=== PATIENT | female | born 1980 | race Caucasian/White ===

== ENCOUNTER 2016-09-17 09:08 | Emergency (ER) | payer BC ==
[2016-09-17 09:47] VITALS: BP 115/77
--- NOTE | 2016-09-17 11:32 | UC ---
Lower Extremity/Ankle HPI - HPI Summary HPI Summary: 3 DAYS AGO PT NOTICED A PAINFUL SWOLLEN LUMP BACK OR RIGHT LEG JUST ABOVE THE KNEE. THE NEXT DAY THE SWELLING WAS GONE AND A BRUISE WAS THERE. HAS PAIN RADIATING UP LEG AND DOWN TO CALF. PT WORRIED ABOUT CLOT. STATES SHE HAD "PROBLEMS WITH THOSE VEINS" WHEN SHE WAS . NO PERSONAL OR FAMILY H/O DVT. NO SOB, CP OR NAUSEA. NO FEVER. - History of Current Complaint Chief Complaint: UCLowerExtremity Stated Complaint: PAIN IN LEG ABOVE KNEE Time Seen by Provider: 09/17/16 11:10 Hx Obtained From: Patient Hx Last Menstrual Period: 09/10/16 Onset/Duration: Gradual Onset, Lasting Days, Still Present Severity Initially: Moderate Severity Currently: Moderate Pain Intensity: 4 Pain Scale Used: 0-10 Numeric Aggravating Factor(s): Nothing Alleviating Factor(s): Nothing Able to Bear Weight: Yes - Allergies/Home Medications Allergies/Adverse Reactions: Allergies Allergy/AdvReac Type Severity Reaction Status Date / Time Amoxicillin [From Augmentin] Allergy Intermediate Vomiting Verified 12/10/14 15: 04 Clavulanic Acid Allergy Intermediate Vomiting Verified 12/10/14 15:04 [From Augmentin] Home Medications: Home Medications NK [No Home Medications Reported] 09/17/16 [History Confirmed 09/17/16] PMH/Surg Hx/FS Hx/Imm Hx Previously Healthy: Yes Endocrine History Of: Denies: Diabetes, Thyroid Disease Cardiovascular History Of: Denies: Cardiac Disorders, Hypertension Respiratory History Of: Denies: COPD, Asthma GI/ History Of: Denies: Ulcer - Surgical History Surgical History: None - Family History Known Family History: Negative: Blood Disorder - Social History Alcohol Use: Rare Substance Use Type: None Smoking Status (MU): Never Smoked Tobacco - Immunization History Most Recent Influenza Vaccination: 03/16/14 Most Recent Tetanus Shot: 04/13/14 Most Recent Pneumonia Vaccination: unsure Review of Systems Constitutional: Negative Skin: Negative Respiratory: Negative Cardiovascular: Negative Gastrointestinal: Negative Musculoskeletal: Myalgia All Other Systems Reviewed And Are Negative: Yes Physical Exam Triage Information Reviewed: Yes Appearance: Well-Appearing, No Pain Distress, Well-Nourished Vital Signs: Initial Vital Signs Temp 98.8 F 09/17/16 09:38 Pulse 65 09/17/16 09:38 Resp 18 09/17/16 09:38 BP 115/77 09/17/16 09:38 Pulse Ox 100 09/17/16 09:38 Vital Signs Reviewed: Yes Eyes: Positive: Conjunctiva Clear ENT: Positive: Hearing grossly normal Neck: Positive: Supple Respiratory Exam: Normal Cardiovascular Exam: Normal Abdomen Description: Positive: Soft Musculoskeletal: Positive: ROM Intact, No Edema, Other: - NO CALF TENDERNESS, NEG HOMANS, NO CORDS PALPATED. CALF CIRCUMFERENCE 39CM BILATERALLY Psychological: Positive: Age Appropriate Behavior Skin: Negative: rashes Lower Extremity Course/Dx - Course Course Of Treatment: PT VERY CONCERNED ABOUT DVT. ULTRASOUND ORDERED BUT PT UNABLE TO WAIT UNTIL IT COULD BE DONE DUE TO CHILDCARE NEEDS. I CALLED AND SPOKE WITH PCP DR. LINN. HER OFFICE WILL CALL THE PT AND ARRANGE FOR IMAGING AND FOLLOW-UP. - Differential Dx/Diagnosis Differential Diagnosis/HQI/PQRI: Bursitis, DVT, Fracture (Closed), Phlebitis, Strain Provider Diagnoses: RLE PAIN - Physician Notifications Discussed Patient Care With: DR. LINN Time Discussed With Above Provider: 11:40 - ADVISED OF PT INABILITY TO WAIT FOR US DUE TO HER CHILDRENS NEEDS. DR. LINN STATES HER OFFICE WILL CONTACT PT AND TAKE CARE OF HER Discharge - Discharge Plan Condition: Stable Disposition: HOME Patient Education Materials: Leg Pain (ED) Referrals: Brenda Linn MD [Primary Care Provider] - As Soon As Possible Additional Instructions: FOLLOW UP WITH YOUR PCP TO SCHEDULE AN OUTPATIENT ULTRASOUND. GO TO THE ER WITHOUT FAIL IF YOU DEVELOP WORSENING PAIN, SHORTNESS OF BREATH, CHEST PAIN, RAPID HEART BEAT, FEVER OR ANY OTHER CONCERNING SYMPTOMS.
== END 2016-09-17 11:40 | disposition home or self-care (01) ==
LOC: UCEAST 09:08
DX: M79.604 Pain in right leg (principal); Z88.1 Allergy status to other antibiotic agents
CPT/HCPCS: 99211; G0463

== ENCOUNTER → 2016-10-22 19:56 | Emergency (ER) | payer BC ==
[~2016-10-22 19:56] MED LIST: Aspirin Low Dose CHEW TAB* 81 MG PO ONE
--- NOTE | 2016-10-22 20:57 | RAD ---
Indication: Chest pain. 2 views of the chest demonstrates pectus excavatum deformity. Lung eli demonstrate no pleural fluid, pneumonia or pneumothorax. IMPRESSION: NO ACTIVE CARDIOPULMONARY DISEASE IS NOTED.
[2016-10-22 21:26] LABS: Hematocrit 41 % (35-47); Hemoglobin 13.6 g/dl (12.0-16.0); Mean Corpuscular HGB Conc 34 g/dl (31-36); Mean Corpuscular Hemoglobin 30 pg (27-31); Mean Corpuscular Volume 90 fL (80-97); Mean Platelet Volume 9 um3 (7.4-10.4); Red Blood Count 4.48 10^6/ul (4.0-5.4); Red Cell Distribution Width 13 % (10.5-15); White Blood Count 5.9 10^3/ul (3.5-10.8)
[2016-10-22 21:41] LABS: ALT 13 U/L (7-52); Albumin 4.5 g/dL (3.2-5.2); Alkaline Phosphatase 37 U/L (34-104); BUN/Creatinine Ratio 15.1 (8-20); Blood Urea Nitrogen 14 mg/dL (6-24); CO2 Carbon Dioxide 28 mmol/L (22-32); Chloride 102 mmol/L (101-111); EGFR African American 88.8 (>60); Globulin 2.6 g/dL (2-4); Glucose 79 mg/dL (70-100); Sodium 136 mmol/L (133-145); Total Protein 7.1 g/dL (6.4-8.9)
[2016-10-22 21:53] LABS: AST 23 U/L (13-39); Anion Gap 6 mmol/L (2-11); Potassium 3.7 mmol/L (3.5-5.0)
--- NOTE | 2016-10-22 22:54 | ED ---
Sylvia Lira Erika, scribed for Natanael Harris MD on 10/22/16 at 2135 . HPI Chest Pain - HPI Summary HPI Summary: Patient is a 36-year-old female presenting to the ED with a CC of chest pain intermittently for the past week. Patient reports that she has had seemingly random episodes of stabbing pain between her shoulder blades, associated with a pain in the left anterior chest. Each episode lasts a few seconds, and is not related to exertion. Pt denies any pain in between these episodes. She reports most recent episode was 19:30 today. Pt does also report lightheadedness when she stands, worse recently. She also reports a 30 minute episode of diaphoresis on 10/19/2016, without feeling hot and unrelated to other symptoms. Pt denies SOB and nausea. Pt denies PMHx. She states her parents are alive and healthy in their 60s. - History of Current Complaint Chief Complaint: EDGeneral Time Seen by Provider: 10/22/16 20:15 Hx Obtained From: Patient Onset/Duration: Started Weeks Ago - 1 week, Atraumatic, Still Present Timing: Intermittent Initial Severity: Moderate Current Severity: None Pain Intensity: 0 Pain Scale Used: 0-10 Numeric Chest Pain Location: Left Anterior Chest Pain Radiates: Yes Chest Pain Radiates To:: Back Character: Sharp/Stabbing Aggravating Factor(s): Nothing Alleviating Factor(s): Spontaneous Resolution Associated Signs and Symptoms: Negative: Shortness of Breath, Nausea - Allergy/Home Medications Allergies/Adverse Reactions: Allergies Allergy/AdvReac Type Severity Reaction Status Date / Time Amoxicillin [From Augmentin] Allergy Intermediate Vomiting Verified 12/10/14 15: 04 Clavulanic Acid Allergy Intermediate Vomiting Verified 12/10/14 15:04 [From Augmentin] PMH/Surg Hx/FS Hx/Imm Hx Endocrine/Hematology History: Denies: Hx Diabetes, Hx Thyroid Disease Cardiovascular History: Denies: Hx Hypertension Respiratory History: Denies: Hx Asthma, Hx Chronic Obstructive Pulmonary Disease (COPD) GI History: Denies: Hx Ulcer Infectious Disease History: Denies: Hx Hepatitis, Hx Human Immunodeficiency Virus (HIV), Traveled Outside the [place] in Last 30 Days - Family History Known Family History: Negative: Cardiac Disease, Blood Disorder - Social History Alcohol Use: Rare Hx Substance Use: No Substance Use Type: Reports: None Hx Tobacco Use: No Smoking Status (MU): Never Smoked Tobacco Review of Systems Positive: Skin Diaphoresis - 3 days ago, resolved Positive: Chest Pain Negative: Shortness Of Breath Negative: Nausea Neurological: Other - lightheadedness All Other Systems Reviewed And Are Negative: Yes Physical Exam Triage Information Reviewed: Yes Vital Signs On Initial Exam: Initial Vitals Temp Pulse Resp BP Pulse Ox 98.4 F 62 18 121/74 100 10/22/16 20:03 10/22/16 20:03 10/22/16 20:03 10/22/16 20:03 10/22/16 20:03 Vital Signs Reviewed: Yes Appearance: Positive: Well-Appearing, No Pain Distress Skin: Positive: Warm, Skin Color Reflects Adequate Perfusion, Dry Head/Face: Positive: Normal Head/Face Inspection Eyes: Positive: Normal ENT: Positive: Normal ENT inspection Neck: Positive: Supple, Nontender Respiratory/Lung Sounds: Positive: Clear to Auscultation, Breath Sounds Present Cardiovascular: Positive: RRR Abdomen Description: Positive: Nontender, Soft Bowel Sounds: Positive: Present Musculoskeletal: Positive: Normal Neurological: Positive: Normal Psychiatric: Positive: Affect/Mood Appropriate Diagnostics - Vital Signs Vital Signs Temp Pulse Resp BP Pulse Ox 10/22/16 20:03 98.4 F 62 18 121/74 100 - Laboratory Lab Results: Lab Results 10/22/16 10/22/16 10/22/16 Range/Units 21:15 21:15 21:15 WBC 5.9 (3.5-10.8) 10^3/ul RBC 4.48 (4.0-5.4) 10^6/ul Hgb 13.6 (12.0-16.0) g/dl Hct 41 (35-47) % MCV 90 (80-97) fL MCH 30 (27-31) pg MCHC 34 (31-36) g/dl RDW 13 (10.5-15) % Plt Count 177 (150-450) 10^3/ul MPV 9 (7.4-10.4) um3 Neut % (Auto) 51.6 (38-83) % Lymph % (Auto) 36.4 (25-47) % [place] % (Auto) 9.0 (1-9) % Eos % (Auto) 2.6 (0-6) % Baso % (Auto) 0.4 (0-2) % Absolute Neuts (auto) 3.1 (1.5-7.7) 10^3/ul Absolute Lymphs (auto) 2.2 (1.0-4.8) 10^3/ul Absolute Monos (auto) 0.5 (0-0.8) 10^3/ul Absolute Eos (auto) 0.2 (0-0.6) 10^3/ul Absolute Basos (auto) 0 (0-0.2) 10^3/ul Absolute Nucleated RBC 0 10^3/ul Nucleated RBC % 0.1 D-Dimer, Quantitative (Less Than 230) ng/mL Sodium 136 (133-145) mmol/L Potassium 3.7 (3.5-5.0) mmol/L Chloride 102 (101-111) mmol/L Carbon Dioxide 28 (22-32) mmol/L Anion Gap 6 (2-11) mmol/L BUN 14 (6-24) mg/dL Creatinine 0.93 (0.51-0.95) mg/dL Est GFR ( Amer) 88.8 (>60) Est GFR (Non-Af Amer) 69.0 (>60) BUN/Creatinine Ratio 15.1 (8-20) Glucose 79 (70-100) mg/dL Lactic Acid 0.6 (0.5-2.0) mmol/L Calcium 9.0 (8.6-10.3) mg/dL Total Bilirubin 0.50 (0.2-1.0) mg/dL AST 23 (13-39) U/L ALT 13 (7-52) U/L Alkaline Phosphatase 37 (34-104) U/L Troponin I 0.00 (<0.04) ng/mL Total Protein 7.1 (6.4-8.9) g/dL Albumin 4.5 (3.2-5.2) g/dL Globulin 2.6 (2-4) g/dL Albumin/Globulin Ratio 1.7 (1-3) Beta HCG, Quant < 0.60 mIU/mL 10/22/16 Range/Units 22:18 WBC (3.5-10.8) 10^3/ul RBC (4.0-5.4) 10^6/ul Hgb (12.0-16.0) g/dl Hct (35-47) % MCV (80-97) fL MCH (27-31) pg MCHC (31-36) g/dl RDW (10.5-15) % Plt Count (150-450) 10^3/ul MPV (7.4-10.4) um3 Neut % (Auto) (38-83) % Lymph % (Auto) (25-47) % [place] % (Auto) (1-9) % Eos % (Auto) (0-6) % Baso % (Auto) (0-2) % Absolute Neuts (auto) (1.5-7.7) 10^3/ul Absolute Lymphs (auto) (1.0-4.8) 10^3/ul Absolute Monos (auto) (0-0.8) 10^3/ul Absolute Eos (auto) (0-0.6) 10^3/ul Absolute Basos (auto) (0-0.2) 10^3/ul Absolute Nucleated RBC 10^3/ul Nucleated RBC % D-Dimer, Quantitative < 200 (Less Than 230) ng/mL Sodium (133-145) mmol/L Potassium (3.5-5.0) mmol/L Chloride (101-111) mmol/L Carbon Dioxide (22-32) mmol/L Anion Gap (2-11) mmol/L BUN (6-24) mg/dL Creatinine (0.51-0.95) mg/dL Est GFR ( Amer) (>60) Est GFR (Non-Af Amer) (>60) BUN/Creatinine Ratio (8-20) Glucose (70-100) mg/dL Lactic Acid (0.5-2.0) mmol/L Calcium (8.6-10.3) mg/dL Total Bilirubin (0.2-1.0) mg/dL AST (13-39) U/L ALT (7-52) U/L Alkaline Phosphatase (34-104) U/L Troponin I (<0.04) ng/mL Total Protein (6.4-8.9) g/dL Albumin (3.2-5.2) g/dL Globulin (2-4) g/dL Albumin/Globulin Ratio (1-3) Beta HCG, Quant mIU/mL Result Diagrams: 10/22/16 21:15 10/22/16 21:15 Lab Statement: Any lab studies that have been ordered have been reviewed, and results considered in the medical decision making process. - Radiology CXR Radiology Interpretation Completed By: Radiologist - IMPRESSION: NO ACTIVE CARDIOPULMONARY DISEASE IS NOTED. - EKG 20:46 Cardiac Rate: Bradycardia - at 58 bpm EKG Rhythm: Sinus Bradycardia Re-Evaluation - Re-Evaluation First Eval Re-Evaluation Time: 22:37 Comment: Discussed lab and imaging results with patient Chest Pain Course/Dx - Course Course Of Treatment: Ms. Jensen has an atypical pain and her W/U is normal here. - Diagnoses Provider Diagnoses: Chest pain Discharge - Discharge Plan Condition: Stable Disposition: HOME Patient Education Materials: Chest Pain (ED) Referrals: Brenda Linn MD [Primary Care Provider] - 2 Days Additional Instructions: Please follow up with your PCP The documentation as recorded by the Sylvia bashir Erika accurately reflects the service I personally performed and the decisions made by me, Natanael Harris MD.
[2016-10-22 23:46] VITALS: BP 105/60
== END | disposition home or self-care (01) ==
LOC: ED 19:56
DX: R07.9 Chest pain, unspecified (principal); R61 Generalized hyperhidrosis
CPT/HCPCS: 36415; 71020; 80053; 83605; 84484; 84702; 85025; 85379; 93005; 99283; A9270-GY

== ENCOUNTER 2017-10-06 01:31 | Emergency (ER) | payer BC ==
[2017-10-06 04:24] LABS: ABS Basophils 0 10^3/ul (0-0.2); ABS Eosinophils 0.1 10^3/ul (0-0.6); ABS Lymphocytes 1.8 10^3/ul (1.0-4.8); ABS Monocytes 0.6 10^3/ul (0-0.8); ABS Neutrophils 3.7 10^3/ul (1.5-7.7); ABS Nucleated RBC 0 10^3/ul; Eosinophil % 2.3 % (0-6); Hematocrit 37 % (35-47); Hemoglobin 12.5 g/dl (12.0-16.0); Lymphocyte % 28.8 % (25-47); Mean Corpuscular HGB Conc 33 g/dl (31-36); Mean Corpuscular Hemoglobin 30 pg (27-31); Mean Corpuscular Volume 89 fL (80-97); Mean Platelet Volume 8.7 um3 (7.4-10.4); Nucleated Red Blood Cells % 0.1; Platelet Count 184 10^3/ul (150-450); Red Blood Count 4.22 10^6/ul (4.0-5.4); Red Cell Distribution Width 13 % (10.5-15); White Blood Count 6.4 10^3/ul (3.5-10.8)
[2017-10-06 04:39] LABS: INR 0.99 (0.77-1.02)
[2017-10-06 04:47] LABS: EGFR Non-African American 95.2 (>60)
[2017-10-06 05:22] LABS: Urine Appearance Cloudy; Urine Blood Negative (Negative); Urine Color Yellow; Urine Ketones Negative (Negative); Urine Protein Negative (Negative); Urine Specific Gravity 1.014 (1.010-1.030); Urine Urobilinogen Negative (Negative)
--- NOTE | 2017-10-06 05:30 | ED ---
Goran Lira Rebecca, scribed for Josh Hopsonuel on 10/06/17 at 0247 . Abdominal Pain/Female - HPI Summary HPI Summary: Pt is a 37 y/o F who presents to ED c/o RUQ abdominal pain. Sx have been present for about 3-4 days, worsening since onset. Pain is currently moderate, ranked 7/10 and characterized as pressure. Radiates to the back. Additionally c/ o chills and subjective fever. Denies N/V. Similar to prior episodes of "gallbaldder issues." No PMHx kidney stones. - History of Current Complaint Chief Complaint: EDAbdPain Stated Complaint: ABD PAIN Time Seen by Provider: 10/06/17 02:41 Hx Obtained From: Patient Hx Last Menstrual Period: 09/10/16 Onset/Duration: Still Present Severity Currently: Moderate Pain Intensity: 7 Pain Scale Used: 0-10 Numeric Location: Discrete At: RUQ Radiates: Yes Radiates to: Back Associated Signs and Symptoms: Positive: Fever. Negative: Nausea, Vomiting Allergies/Adverse Reactions: Allergies Allergy/AdvReac Type Severity Reaction Status Date / Time MS Amoxicillin Allergy Intermediate Vomiting Verified 12/10/14 15:04 [From Augmentin] MS Clavulanic Acid Allergy Intermediate Vomiting Verified 12/10/14 15:04 [From Augmentin] PMH/Surg Hx/FS Hx/Imm Hx Endocrine/Hematology History: Denies: Hx Diabetes, Hx Thyroid Disease Cardiovascular History: Denies: Hx Hypertension Respiratory History: Denies: Hx Asthma, Hx Chronic Obstructive Pulmonary Disease (COPD) GI History: Denies: Hx Ulcer Infectious Disease History: No Infectious Disease History: Denies: Hx Hepatitis, Hx Human Immunodeficiency Virus (HIV), Traveled Outside the [place] in Last 30 Days - Family History Known Family History: Negative: Cardiac Disease, Blood Disorder - Social History Alcohol Use: Rare Hx Substance Use: No Substance Use Type: Reports: None Hx Tobacco Use: No Smoking Status (MU): Never Smoked Tobacco Review of Systems Positive: Fever, Chills Positive: Abdominal Pain. Negative: Vomiting, Nausea All Other Systems Reviewed And Are Negative: Yes Physical Exam - Summary Physical Exam Summary: Appearance: Well appearing, no pain distress Skin: warm, dry, reflects adequate perfusion Head/face: normal Eyes: EOMI, RENATO ENT: normal Neck: supple, non-tender Respiratory: CTA, breath sounds present Cardiovascular: RRR, pulses symmetrical ~ Abdomen: R flank tenderness, soft Bowel: present Musculoskeletal: normal, strength/ROM intact Neuro: normal, sensory motor intact, A&Ox3 Triage Information Reviewed: Yes Vital Signs On Initial Exam: Initial Vitals Temp Pulse Resp BP Pulse Ox 99.4 F 75 20 121/74 100 10/06/17 01:36 10/06/17 01:36 10/06/17 01:36 10/06/17 01:36 10/06/17 01:36 Vital Signs Reviewed: Yes Diagnostics - Vital Signs Vital Signs Temp Pulse Resp BP Pulse Ox 10/06/17 01:36 99.4 F 75 20 121/74 100 - Laboratory Lab Results: Lab Results 10/06/17 10/06/17 10/06/17 Range/Units 04:14 04:14 04:14 WBC 6.4 (3.5-10.8) 10^3/ul RBC 4.22 (4.0-5.4) 10^6/ul Hgb 12.5 (12.0-16.0) g/dl Hct 37 (35-47) % MCV 89 (80-97) fL MCH 30 (27-31) pg MCHC 33 (31-36) g/dl RDW 13 (10.5-15) % Plt Count 184 (150-450) 10^3/ul MPV 8.7 (7.4-10.4) um3 Neut % (Auto) 58.7 (38-83) % Lymph % (Auto) 28.8 (25-47) % [place] % (Auto) 9.7 H (0-7) % Eos % (Auto) 2.3 (0-6) % Baso % (Auto) 0.5 (0-2) % Absolute Neuts (auto) 3.7 (1.5-7.7) 10^3/ul Absolute Lymphs (auto) 1.8 (1.0-4.8) 10^3/ul Absolute Monos (auto) 0.6 (0-0.8) 10^3/ul Absolute Eos (auto) 0.1 (0-0.6) 10^3/ul Absolute Basos (auto) 0 (0-0.2) 10^3/ul Absolute Nucleated RBC 0 10^3/ul Nucleated RBC % 0.1 INR (Anticoag Therapy) 0.99 (0.77-1.02) APTT 34.0 (26.0-36.3) seconds Sodium 136 L (139-145) mmol/L Potassium 3.5 (3.5-5.0) mmol/L Chloride 103 (101-111) mmol/L Carbon Dioxide 26 (22-32) mmol/L Anion Gap 7 (2-11) mmol/L BUN 10 (6-24) mg/dL Creatinine 0.70 (0.51-0.95) mg/dL Est GFR ( Amer) 122.5 (>60) Est GFR (Non-Af Amer) 95.2 (>60) BUN/Creatinine Ratio 14.3 (8-20) Glucose 95 (70-100) mg/dL Calcium 8.9 (8.6-10.3) mg/dL Total Bilirubin 0.70 (0.2-1.0) mg/dL AST 16 (13-39) U/L ALT 11 (7-52) U/L Alkaline Phosphatase 28 L (34-104) U/L Troponin I 0.00 (<0.04) ng/mL Total Protein 6.5 (6.4-8.9) g/dL Albumin 4.0 (3.2-5.2) g/dL Globulin 2.5 (2-4) g/dL Albumin/Globulin Ratio 1.6 (1-3) Lipase 25 (11.0-82.0) U/L Beta HCG, Quant < 0.60 mIU/mL Urine Color Urine Appearance Urine pH (5-9) Ur Specific [place] (1.010-1.030) Urine Protein (Negative) Urine Ketones (Negative) Urine Blood (Negative) Urine Nitrate (Negative) Urine Bilirubin (Negative) Urine Urobilinogen (Negative) Ur Leukocyte Esterase (Negative) Urine Glucose (Negative) Urine Ascorbic Acid (Negative) 10/06/17 Range/Units 05:00 WBC (3.5-10.8) 10^3/ul RBC (4.0-5.4) 10^6/ul Hgb (12.0-16.0) g/dl Hct (35-47) % MCV (80-97) fL MCH (27-31) pg MCHC (31-36) g/dl RDW (10.5-15) % Plt Count (150-450) 10^3/ul MPV (7.4-10.4) um3 Neut % (Auto) (38-83) % Lymph % (Auto) (25-47) % [place] % (Auto) (0-7) % Eos % (Auto) (0-6) % Baso % (Auto) (0-2) % Absolute Neuts (auto) (1.5-7.7) 10^3/ul Absolute Lymphs (auto) (1.0-4.8) 10^3/ul Absolute Monos (auto) (0-0.8) 10^3/ul Absolute Eos (auto) (0-0.6) 10^3/ul Absolute Basos (auto) (0-0.2) 10^3/ul Absolute Nucleated RBC 10^3/ul Nucleated RBC % INR (Anticoag Therapy) (0.77-1.02) APTT (26.0-36.3) seconds Sodium (139-145) mmol/L Potassium (3.5-5.0) mmol/L Chloride (101-111) mmol/L Carbon Dioxide (22-32) mmol/L Anion Gap (2-11) mmol/L BUN (6-24) mg/dL Creatinine (0.51-0.95) mg/dL Est GFR ( Amer) (>60) Est GFR (Non-Af Amer) (>60) BUN/Creatinine Ratio (8-20) Glucose (70-100) mg/dL Calcium (8.6-10.3) mg/dL Total Bilirubin (0.2-1.0) mg/dL AST (13-39) U/L ALT (7-52) U/L Alkaline Phosphatase (34-104) U/L Troponin I (<0.04) ng/mL Total Protein (6.4-8.9) g/dL Albumin (3.2-5.2) g/dL Globulin (2-4) g/dL Albumin/Globulin Ratio (1-3) Lipase (11.0-82.0) U/L Beta HCG, Quant mIU/mL Urine Color Yellow Urine Appearance Cloudy Urine pH 7.0 (5-9) Ur Specific [place] 1.014 (1.010-1.030) Urine Protein Negative (Negative) Urine Ketones Negative (Negative) Urine Blood Negative (Negative) Urine Nitrate Negative (Negative) Urine Bilirubin Negative (Negative) Urine Urobilinogen Negative (Negative) Ur Leukocyte Esterase Negative (Negative) Urine Glucose Negative (Negative) Urine Ascorbic Acid * A (Negative) Result Diagrams: 10/06/17 04:14 10/06/17 04:14 Lab Statement: Any lab studies that have been ordered have been reviewed, and results considered in the medical decision making process. - CT CT Abd/Pel CT Interpretation: No Acute Changes - No localizing signs for acute pathology. ED physicial reviewed this radiology report. CT Interpretation Completed By: Radiologist Re-Evaluation - Re-Evaluation First Eval Re-Evaluation Time: 05:28 Comment: Discussed results, sx have improved. Abdominal Pain Fem Course/Dx - Course Course Of Treatment: Pt is a 37 y/o F who presents to ED c/o RUQ abdominal pain for about 3-4 days, worsening since onset. Pain is currently moderate, ranked 7/ 10 and characterized as pressure. Radiates to the back. Additionally c/o chills and subjective fever. Denies N/V. Similar to prior episodes of "gallbaldder issues." No PMHx kidney stones. CT abd/pel reveals no acute findings. Blood work was done. Declined any pain medication. Pt will be D/C to home with Dx of flank pain with a follow up with her PCP. She understands and agrees. Allergies noted. - Diagnoses Differential Diagnosis: Positive: Appendicitis, Diverticulitis, Ovarian Cyst, Renal Colic, Urinary Tract Infection Provider Diagnoses: Flank pain Discharge - Sign-Out/Discharge Documenting (check all that apply): Discharge/Admit/Transfer - Discharge - Discharge Plan Condition: Stable Disposition: HOME Patient Education Materials: Flank Pain (ED) Referrals: Brenda Linn MD [Primary Care Provider] - 3 Days Additional Instructions: RETURN TO ED FOR ANY RETURNING OR WORSENING SYMPTOMS. - Billing Disposition and Condition Condition: STABLE Disposition: HOME The documentation as recorded by the Goran bashir Rebecca accurately reflects the service I personally performed and the decisions made by , Johnny Hopson.
[2017-10-06 05:44] VITALS: BP 117/71
--- NOTE | 2017-10-06 08:05 | RAD ---
CLINICAL HISTORY: Right flank pain COMPARISON: None TECHNIQUE: Noncontrast CT examination of the abdomen and pelvis from the lung bases through the initial tuberosities. FINDINGS: VISUALIZED LUNG BASES: The visualized lung bases are grossly clear. There is no pleural effusion. ABDOMEN AND PELVIS: Evaluation of the solid organs and vasculature is limited without intravenous contrast. The liver, spleen, pancreas and adrenal glands are grossly normal in appearance. The gallbladder is normal. The kidneys are normal in appearance without focal mass, calcification or signs of hydronephrosis. The small and large bowel are not distended.The patient's normal appendix is identified in the right lower quadrant measuring up to 6 mm in diameter with gas in the lumen (axial image 58). There is no gross retroperitoneal or mesenteric lymphadenopathy. The pelvic viscera is normal in appearance. The abdominal aorta and iliac arteries are normal in course and diameter. There are no sinister bone lesions. IMPRESSION: Normal CT examination.
== END 2017-10-06 05:48 | disposition home or self-care (01) ==
LOC: ED 01:31
DX: R10.11 Right upper quadrant pain (principal); R50.9 Fever, unspecified; Z32.02 Encounter for pregnancy test, result negative; Z88.1 Allergy status to other antibiotic agents; Z88.0 Allergy status to penicillin
CPT/HCPCS: 36415; 74176; 80053; 81003; 83690; 84484; 84702; 85025; 85610; 85730; 99282

== ENCOUNTER 2018-03-04 21:30 | Emergency (ER) | payer BC ==
--- OUTSIDE RECORDS SUMMARY | 2018-03-04 21:51 | XMS REPORT ---
:1980 External Reference #:[id number] Author Organization [facility] Address [address] [place] [address] Phone [phone] Care Team Providers Name Role Phone Brenda Linn Care Team Information Pad Assembler Unavailable Brenda Linn Primary Care Physician Unavailable Payers Type Date Identification Numbers Payment Provider Subscriber Commercial Effective: Policy Number: BC/BS Of REY Jeffery Ernst 2016 [id number] PayID: [id number] [address] [place] [id number] Problems Date Description Provider Status Onset: 12/06/2015 Lyme disease Igor Devine M.D. Active Family History Date Family Member(s) Problem(s) Comments General Prostate Cancer PGF General Anemia General back pain. we tend to stiffen up. General Anorexia Nervosa General No early in GP1st cousin on Dad's side breast CA age 30. Triple negative Father healthy Number of Children 3 First Son developmentally delayed. down syndrome. 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 (2017) Cigarette Use Never Smoked Cigarettes ETOH Use Rarely consumes alcohol 1-2 glasses a year. Smoking Patient has never smoked Daily Caffeine Consumes on average 2 cups of tea per day Exercise Type/Frequency Exercises regularly free Current weights, walks with the stroller frequently, aerobics at home on elliptical 3 times a week x 30 minutes. Seat Belt/Car Seat Always uses a seat belt Allergies, Adverse Reactions, Alerts Date Description Reaction Status Severity Comments 06/30/2013 Augmentin active vomiting Medications Medication Date Status Form Strength Qnty SIG Indications Ordering Provider No Active 09/16/ Active Unknown Medications 2016 Amoxicillin 12/05/ Hx Tablets 500mg 90tabs 1 tab by Igor Baker 2016 - mouth Midura, 09/16/ three M.D. 2017 times a day Amoxicillin 11/29/ Hx Capsules 250mg 42caps 1 by mouth Brenda VallecilloJericho 2015 - three Temitope, 12/05/ times a M.D. 2016 day 14 days Amoxicillin 12/10/ Hx Tablets 500mg 63tabs 1 tab by Frances 2015 - mouth Vancourt, 08/07/ three M.D. 2016 times a day x 21 days Albuterol 05/02/ Hx Nebulizer 0.63mg/3ML 25unit 1 ampule 786.2 Shanna Sulfate 2013 - s every four [facility], 11/26/ hours via [facility] 2015 nebulizer as needed Nebulizer Set 05/02/ Hx 1units dispense 786.2 Shanna Up And Tubing 2013 - one [facility], 11/26/ machine [facility] 2015 for nebulizer Azithromycin 04/17/ Hx Tablets 250mg 5tabs 2 tabs 465.8 Frances 2013 - today, Vancourt, 05/02/ then 1 tab M.D. 2013 daily for next 4 days Proair HFA 04/17/ Hx Aerosol 108(90Base 1units 2 puffs 465.8 Frances 2013 - ) mcg/Act every 4-6 Vancourt, 11/26/ hours as M.D. 2015 needed Wrist Splint, 04/09/ Hx 1units right 842.09 Val Restrictive 2008 - wrist Facundo, Flex/Extend 09/18/ ;wear as [facility] 2009 directed /Folic 01/03/ Hx Tablets Shanna Acid 2007 - 12/29/ Evette, 2012 M.D. Ciloxan .3% 02/26/ Hx Solution 3.33mg/GM 10cc 1-2 gtts 372.03 Val 2007 - OU q3-4h Facundo, 05/20/ [place] 2006 Zithromax 11/06/ Hx Tablets 250mg 6tabs 2 Tabs Day Shanna 2007 - 1 von 12/01/ Evette, 2006 1 M.D. Tab qd Days 2 Thru 5 Augmentin 11/05/ Hx Tablets 875mg;125 20tabs 1 po bid 462 Val 2007 - mg with food Facundo, 11/06/ x 10D [facility] 2006 Alesse 28 Day 04/03/ Hx Tablets 0.02mg;0.1 1PK 1 po qd Val 2005 - mg Facundo, 01/03/ [facility] 2007 Axert 04/03/ Hx Tablets 12.5mg 9tabs 1 at onset 346.90 Mee 2005 - of [place], 09/18/ migraine Afnp-C 2010 sx, MR In 2 HRS / Hx Capsules 1 po qd Unknown Vitamins 0000 - 2015 Medications Administered in Office Medication Date Status Form Strength Qnty SIG Indications Ordering Provider TB Intradermal Administered Injection Brenda Linn M.D. Immunizations CPT Code Status Date Vaccine Lot # 63083 Given 06/30/2013 Tdap Tetanus, W Pertussis a54al [id number] Given 04/19/2013 DO Not Use Split Influenza Virus Vaccine 76940 Given 05/11/2012 DO Not Use Split Influenza Virus Vaccine Vital Signs Date Vital Result Comment 03/02/2018 BP Systolic 106 mmHg BP Diastolic 68 mmHg Heart Rate 60 /min Body Temperature 97.9 F Respiratory Rate 16 /min Height 66.5 inches 5'6.50" Weight 143.00 lb BMI (Body Mass Index) 22.7 kg/m2 12/16/2016 BP Systolic 100 mmHg BP Diastolic 70 mmHg Heart Rate 60 /min Body Temperature 98.2 F Respiratory Rate 18 /min Height 66.5 inches 5'6.50" Weight 138.00 lb BMI (Body Mass Index) 21.9 kg/m2 09/16/2016 BP Systolic 100 mmHg BP Diastolic 70 mmHg Heart Rate 60 /min Body Temperature 98.2 F Respiratory Rate 16 /min Height 66.5 inches 5'6.50" Weight 145.00 lb BMI (Body Mass Index) 23.1 kg/m2 12/13/2015 BP Systolic 100 mmHg BP Diastolic 60 mmHg Heart Rate 60 /min Body Temperature 98.3 F Respiratory Rate 16 /min Height 66.5 inches 5'6.50" Weight 135.50 lb BMI (Body Mass Index) 21.5 kg/m2 12/06/2015 BP Systolic 94 mmHg BP Diastolic 60 mmHg Heart Rate 72 /min Body Temperature 99.0 F Respiratory Rate 16 /min Height 66.5 inches 5'6.50" Weight 135.50 lb BMI (Body Mass Index) 21.5 kg/m2 11/27/2015 BP Systolic 98 mmHg BP Diastolic 68 mmHg Heart Rate 60 /min Body Temperature 97.7 F Height 66.5 inches 5'6.50" Weight 133.00 lb BMI (Body Mass Index) 21.1 kg/m2 08/08/2015 BP Systolic 96 mmHg BP Diastolic 68 mmHg Heart Rate 66 /min Body Temperature 97.9 F Respiratory Rate 16 /min Height 66.5 inches 5'6.50" Weight 136.38 lb BMI (Body Mass Index) 21.7 kg/m2 05/02/2014 BP Systolic 94 mmHg BP Diastolic 60 mmHg Heart Rate 80 /min Body Temperature 98.3 F Respiratory Rate 16 /min O2 % BldC Oximetry 168 % Height 66.5 inches 5'6.50" 04/17/2014 BP Systolic 108 mmHg BP Diastolic 62 mmHg Heart Rate 88 /min Body Temperature 98.3 F Respiratory Rate 14 /min O2 % BldC Oximetry 97 % Height 66.5 inches 5'6.50" Weight 168.50 lb BMI (Body Mass Index) 26.8 kg/m2 06/30/2013 BP Systolic 126 mmHg BP Diastolic 64 mmHg Heart Rate 66 /min Body Temperature 97.1 F Respiratory Rate 16 /min Height 66.5 inches 5'6.50" Weight 142.00 lb BMI (Body Mass Index) 22.6 kg/m2 12/29/2012 BP Systolic 100 mmHg BP Diastolic 60 mmHg Heart Rate 56 /min Body Temperature 98.6 F Respiratory Rate 16 /min Height 66.5 inches 5'6.50" Weight 140.38 lb BMI (Body Mass Index) 22.3 kg/m2 09/22/2011 BP Systolic 90 mmHg BP Diastolic 56 mmHg Heart Rate 72 /min Body Temperature 98.9 F Height 66.5 inches 5'6.50" Weight 136.00 lb BMI (Body Mass Index) 21.6 kg/m2 05/29/2010 BP Systolic 90 mmHg BP Diastolic 60 mmHg Heart Rate 60 /min Body Temperature 98.5 F Height 66.5 inches 5'6.50" Weight 140.00 lb BMI (Body Mass Index) 22.3 kg/m2 11/23/2009 BP Systolic 82 mmHg BP Diastolic 66 mmHg Heart Rate 60 /min Body Temperature 96.9 F Height 66.5 inches 5'6.50" Weight 132.00 lb BMI (Body Mass Index) 21.0 kg/m2 09/18/2009 BP Systolic 106 mmHg BP Diastolic 70 mmHg Heart Rate 60 /min Body Temperature 98.2 F Height 66.5 inches 5'6.50" Weight 138.00 lb BMI (Body Mass Index) 21.9 kg/m2 04/09/2009 BP Systolic 100 mmHg BP Diastolic 58 mmHg Heart Rate 68 /min Respiratory Rate 18 /min Height 66.5 inches 5'6.50" Weight 141.00 lb BMI (Body Mass Index) 22.4 kg/m2 01/04/2008 BP Systolic 120 mmHg BP Diastolic 64 mmHg Heart Rate 56 /min Body Temperature 98.7 F Height 66.5 inches 5'6.50" Weight 147.00 lb BMI (Body Mass Index) 23.4 kg/m2 10/07/2007 BP Systolic 120 mmHg BP Diastolic 64 mmHg Heart Rate 64 /min Body Temperature 98.3 F Height 66.5 inches 5'6.50" Weight 149.00 lb BMI (Body Mass Index) 23.7 kg/m2 07/14/2007 BP Systolic 102 mmHg BP Diastolic 70 mmHg Heart Rate 64 /min Body Temperature 97.9 F Height 66.5 inches 5'6.50" Weight 148.00 lb BMI (Body Mass Index) 23.5 kg/m2 05/20/2007 BP Systolic 100 mmHg BP Diastolic 60 mmHg Heart Rate 64 /min Body Temperature 97.9 F Height 66.5 inches 5'6.50" Weight 148.00 lb BMI (Body Mass Index) 23.5 kg/m2 02/26/2007 BP Systolic 100 mmHg BP Diastolic 50 mmHg Body Temperature 99.3 F Height 66.5 inches 5'6.50" Weight 149.00 lb BMI (Body Mass Index) 23.7 kg/m2 12/01/2006 BP Systolic 102 mmHg BP Diastolic 54 mmHg Heart Rate 76 /min Body Temperature 98.2 F Height 66.5 inches 5'6.50" Weight 148.00 lb BMI (Body Mass Index) 23.5 kg/m2 11/05/2006 BP Systolic 120 mmHg BP Diastolic 70 mmHg Heart Rate 80 /min Body Temperature 99.9 F Height 66.5 inches 5'6.50" Weight 146.00 lb BMI (Body Mass Index) 23.2 kg/m2 08/19/2006 BP Systolic 106 mmHg BP Diastolic 60 mmHg Heart Rate 66 /min Body Temperature 99.4 F Height 66.5 inches 5'6.50" Weight 148.00 lb BMI (Body Mass Index) 23.5 kg/m2 04/03/2006 BP Systolic 110 mmHg BP Diastolic 72 mmHg Heart Rate 68 /min Height 66.5 inches 5'6.50" Weight 147.31 lb BMI (Body Mass Index) 23.4 kg/m2 Results Test Date Test Result H/L Range Note CBC Auto Diff 12/25/2017 White Blood Count 4.5 10^3/uL 3.5-10.8 Red Blood Count 4.31 10^6/uL 4.00-5.40 Hemoglobin 12.7 g/dL 12.0-16.0 Hematocrit 38 % 35-47 Mean Corpuscular Volume 88 fL 80-97 Mean Corpuscular Hemoglobin 29 pg 27-31 Mean Corpuscular HGB Conc 34 g/dL 31-36 Red Cell Distribution Width 14 % 10.5-15 Platelet Count 191 10^3/uL 150-450 Mean Platelet Volume 8.6 um3 7.4-10.4 Abs Neutrophils 2.5 10^3/uL 1.5-7.7 Abs Lymphocytes 1.4 10^3/uL 1.0-4.8 Abs Monocytes 0.4 10^3/uL 0-0.8 Abs Eosinophils 0 10^3/uL 0-0.6 Abs Basophils 0 10^3/uL 0-0.2 Abs Nucleated RBC 0 10^3/uL Granulocyte % 56.7 % 38-83 Lymphocyte % 31.6 % 25-47 Monocyte % 10.0 % High 0-7 Eosinophil % 1.1 % 0-6 Basophil % 0.6 % 0-2 Nucleated Red Blood Cells % 0.1 Iron & Iron Binding Capacity 12/25/2017 Iron 81 g/dL 50-212 Unsaturated Iron Binding 207 g/dL Total Iron Binding Capacity 288 g/dL 250-450 Transferrin 206 mg/dL 203-362 % Iron Saturation 28 % 15-55 Laboratory test finding 12/25/2017 Ferritin 5.7 ng/mL Low 11-307 Urinalysis Profile 10/06/2017 Urine Color Yellow Urine Appearance Cloudy Urine Specific [place] 1.014 1.010-1.030 Urine pH 7.0 5-9 Urine Urobilinogen Negative Negative Urine Ketones Negative Negative Urine Protein Negative Negative Urine Leukocytes Negative Negative Urine Blood Negative Negative * * Negative 1 Urine Nitrite Negative Negative Urine Bilirubin Negative Negative Urine Glucose Negative Negative CBC Auto Diff 10/06/2017 White Blood Count 6.4 10^3/uL 3.5-10.8 Red Blood Count 4.22 10^6/uL 4.0-5.4 Hemoglobin 12.5 g/dL 12.0-16.0 Hematocrit 37 % 35-47 Mean Corpuscular Volume 89 fL 80-97 Mean Corpuscular Hemoglobin 30 pg 27-31 Mean Corpuscular HGB Conc 33 g/dL 31-36 Red Cell Distribution Width 13 % 10.5-15 Platelet Count 184 10^3/uL 150-450 Mean Platelet Volume 8.7 um3 7.4-10.4 Abs Neutrophils 3.7 10^3/uL 1.5-7.7 Abs Lymphocytes 1.8 10^3/uL 1.0-4.8 Abs Monocytes 0.6 10^3/uL 0-0.8 Abs Eosinophils 0.1 10^3/uL 0-0.6 Abs Basophils 0 10^3/uL 0-0.2 Abs Nucleated RBC 0 10^3/uL Granulocyte % 58.7 % 38-83 Lymphocyte % 28.8 % 25-47 Monocyte % 9.7 % High 0-7 Eosinophil % 2.3 % 0-6 Basophil % 0.5 % 0-2 Nucleated Red Blood Cells % 0.1 Inr/Protime 10/06/2017 Inr 0.99 0.77-1.02 Laboratory test finding 10/06/2017 Partial Thrombo Time 34.0 seconds 26.0 -36.3 PTT Troponin I 0.00 ng/mL <0.04 Comp Metabolic Panel 10/06/2017 Sodium 136 mmol/L Low 139-145 Potassium 3.5 mmol/L 3.5-5.0 Chloride 103 mmol/L 101-111 Co2 Carbon Dioxide 26 mmol/L 22-32 Anion Gap 7 mmol/L 2-11 Glucose 95 mg/dL 70-100 Blood Urea Nitrogen 10 mg/dL 6-24 Creatinine 0.70 mg/dL 0.51-0.95 BUN/Creatinine Ratio 14.3 8-20 Calcium 8.9 mg/dL 8.6-10.3 Total Protein 6.5 g/dL 6.4-8.9 Albumin 4.0 g/dL 3.2-5.2 Globulin 2.5 g/dL 2-4 Albumin/Globulin Ratio 1.6 1-3 Total Bilirubin 0.70 mg/dL 0.2-1.0 Alkaline Phosphatase 28 U/L Low 34-104 Alt 11 U/L 7-52 Ast 16 U/L 13-39 Egfr Non- 95.2 >60 Egfr 122.5 >60 2 Laboratory test finding 10/06/2017 Lipase 25 U/L 11.0-82.0 HCG < 0.60 mIU/mL 3 Laboratory test finding 04/17/2017 TSH 0.50 mIU/L 0.50-6.00 4 Laboratory test finding 01/01/2017 Coagulation Factor XI 92 % 55 - 150 5 Factor 8 Profile 01/01/2017 Coagulation Factor VIII 93 % 55 - 200 6 Activi von Willebrand Factor Antigen 136 % 55 - 200 7 VonWillibrand Factor Activity 124 % 55 - 200 8 von Willebrand Panel Interp See Comment 9 Laboratory test finding 12/16/2016 TSH 0.48 mIU/L Low 0.50-6.00 10 Lipid Profile 12/16/2016 Cholesterol 167 mg/dL 120-200 Triglycerides 101 mg/dL 30-200 HDL Cholesterol 79 mg/dL 30-85 LDL (Calculated) 68 CALC 0-129 VLDL Cholesterol 20 mg/dL 0-50 HDL Risk Factor 2.1 CALC 0.0-4.4 Laboratory test 12/16/2016 Hla B 27 Disease Negative 11, 12 finding Association Laboratory test 10/22/2016 D Dimer Quantitative < 200 ng/mL Less Than 230 13 finding CBC Auto Diff 10/22/2016 White Blood Count 5.9 10^3/uL 3.5-10.8 Red Blood Count 4.48 10^6/uL 4.0-5.4 Hemoglobin 13.6 g/dL 12.0-16.0 Hematocrit 41 % 35-47 Mean Corpuscular Volume 90 fL 80-97 Mean Corpuscular Hemoglobin 30 pg 27-31 Mean Corpuscular HGB Conc 34 g/dL 31-36 Red Cell Distribution Width 13 % 10.5-15 Platelet Count 177 10^3/uL 150-450 Mean Platelet Volume 9 um3 7.4-10.4 Abs Neutrophils 3.1 10^3/uL 1.5-7.7 Abs Lymphocytes 2.2 10^3/uL 1.0-4.8 Abs Monocytes 0.5 10^3/uL 0-0.8 Abs Eosinophils 0.2 10^3/uL 0-0.6 Abs Basophils 0 10^3/uL 0-0.2 Abs Nucleated RBC 0 10^3/uL Granulocyte % 51.6 % 38-83 Lymphocyte % 36.4 % 25-47 Monocyte % 9.0 % 1-9 Eosinophil % 2.6 % 0-6 Basophil % 0.4 % 0-2 Nucleated Red Blood Cells % 0.1 Laboratory test finding 10/22/2016 Lactic Acid 0.6 mmol/L 0.5-2.0 14 Comp Metabolic Panel 10/22/2016 Sodium 136 mmol/L 133-145 Chloride 102 mmol/L 101-111 Co2 Carbon Dioxide 28 mmol/L 22-32 Glucose 79 mg/dL 70-100 Blood Urea Nitrogen 14 mg/dL 6-24 Creatinine 0.93 mg/dL 0.51-0.95 BUN/Creatinine Ratio 15.1 8-20 Calcium 9.0 mg/dL 8.6-10.3 Total Protein 7.1 g/dL 6.4-8.9 Albumin 4.5 g/dL 3.2-5.2 Globulin 2.6 g/dL 2-4 Albumin/Globulin Ratio 1.7 1-3 Total Bilirubin 0.50 mg/dL 0.2-1.0 Alkaline Phosphatase 37 U/L 34-104 Alt 13 U/L 7-52 Egfr Non- 69.0 >60 Egfr 88.8 >60 15 Potassium 3.7 mmol/L 3.5-5.0 Anion Gap 6 mmol/L 2-11 Ast 23 U/L 13-39 Laboratory test finding 10/22/2016 Troponin I 0.00 ng/mL <0.04 16 HCG < 0.60 mIU/mL 17 Laboratory test finding 12/05/2015 Thyroxine 5.19 ?g/dL Low 6.09-12.23 TSH (Thyroid Stim Horm) 0.58 ?IU/mL 0.34-5.60 T3 Total 0.84 ng/mL Low 0.87-1.78 Free T4 (Free Thyroxine) 0.72 ng/dL 0.61-1.12 Rheumatoid Factor <15 IU/mL <15 18 Connective Tissue Panel 12/05/2015 Anti-Nuclear Antibody 0.1 U 19 Cyclic Citrullinated Peptide <15.6 U 20 Interpretation See Comment 21 Hemochromatosis Hereditary 12/05/2015 Hemochromatosis Result See Comment 22 Dna Summary Hemochromatosis Specimen WB Whole Blood Hemochromatosis Method See Comment 23 Hemochromatosis Results See Comment 24 Hemochromatosis Interpretation See Comment 25 Hemochromatosis Reviewed By See Comment 26 Lyme, Western Blot, Serum 11/27/2015 IgG P93 Ab. Absent 27 IgG P66 Ab. Absent 27 IgG P58 Ab. Absent 27 IgG P45 Ab. Absent 27 IgG P41 Ab. Present 27 IgG P39 Ab. Absent 27 IgG P30 Ab. Absent 27 IgG P28 Ab. Absent 27 IgG P23 Ab. Present 27 IgG P18 Ab. Absent 27 Lyme IgG WB Interp. Negative 27, 28 IgM P41 Ab. Absent 27 IgM P39 Ab. Absent 27 IgM P23 Ab. Present 27 Lyme IgM WB Interp. Negative , 29 Iron And Tibc 11/27/2015 Iron Bind.Cap.(Tibc) 239 g/dL Low 250-450 27 Uibc 90 g/dL Low 131-425 27 Iron, Serum 149 g/dL 27-159 27 Iron Saturation 62 % High 15-55 27 Laboratory test finding 11/27/2015 Ferritin 17 ng/mL 6-115 Complete Blood Count 11/27/2015 WBC 5.2 x10^3/UL 3.6-9.6 RBC 4.93 x10^6/UL 3.90-5.70 HGB 15.0 g/dL 12.1-17.2 HCT 46 % 36-50 MCV 94.0 fL 82.2-97.4 MCH 30.4 pg 27.6-33.3 MCHC 33.0 g/dL 33.0-35.5 RDW 13.2 % 11.6-13.7 PLT 163 x10^3/UL 150-400 MPV 8.1 fL 7.4-10.4 Gran # 3.4 x10^3/UL 1.5-7.2 Lymph# 1.6 x10^3/UL 0.7-4.9 [place]# 0.2 x10^3/UL 0.1-0.9 Gran % 62.6 % 42.2-75.2 Lymph % 31.9 % 20.5-51.1 [place]% 5.5 % 1.7-9.3 Comprehensive Metabolic Prof 11/27/2015 Sodium 141 mEq/L 134-149 Potassium 3.9 mEq/L 3.6-5.5 Chloride 97 mEq/L 94-112 Carbon Dioxide 31 mEq/L 21-32 Glucose 84 mg/dL 70-105 BUN 10 mg/dL 6-26 Creatinine 0.6 mg/dL 0.6-1.4 BUN/Creat Ratio 16.7 CALC 8.0-36.0 Calcium 10.0 mg/dL 8.6-10.2 Total Protein 7.7 g/dL 6.4-8.3 Albumin 5.1 g/dL 3.8-5.5 Globulin 2.6 g/dL 2.0-4.8 A/G Ratio 2.0 CALC 0.6-2.3 Alk. Phosphatase 69 U/L 30-110 Alt (SGPT) 18 U/L 7-35 Ast (Sgot) 24 U/L 5-34 Total Bilirubin 0.6 mg/dL 0.2-1.3 GFR Non- >60 ml/min/1.73m^ >=60 GFR >60 ml/min/1.73m^ >=60 Urinalysis Profile 08/25/2015 Urine Color Yellow Urine Appearance Clear Urine Specific [place] 1.009 Low 1.010-1.030 Urine pH 8.0 5-9 Urine Urobilinogen Negative Negative Urine Ketones 1+ Negative Urine Protein Negative Negative Urine Leukocytes Negative Negative Urine Blood Negative Negative Urine Nitrite Negative Negative Urine Bilirubin Negative Negative Urine Glucose Negative Negative CBC Auto Diff 08/25/2015 White Blood Count 7.2 10^3/uL 3.5-10.8 Red Blood Count 5.26 10^6/uL 4.0-5.4 Hemoglobin 16.0 g/dL 12.0-16.0 Hematocrit 49 % High 35-47 Mean Corpuscular Volume 94 fL 80-97 Mean Corpuscular Hemoglobin 31 pg 27-31 Mean Corpuscular HGB Conc 32 g/dL 31-36 Red Cell Distribution Width 12 % 10.5-15 Platelet Count 176 10^3/uL 150-450 Mean Platelet Volume 9 um3 7.4-10.4 Abs Neutrophils 5.9 10^3/uL 1.5-7.7 Abs Lymphocytes 0.5 10^3/uL Low 1.0-4.8 Abs Monocytes 0.7 10^3/uL 0-0.8 Abs Eosinophils 0 10^3/uL 0-0.6 Abs Basophils 0 10^3/uL 0-0.2 Abs Nucleated RBC 0 10^3/uL Granulocyte % 82.7 % 38-83 Lymphocyte % 7.1 % Low 25-47 Monocyte % 9.8 % High 1-9 Eosinophil % 0.2 % 0-6 Basophil % 0.2 % 0-2 Nucleated Red Blood Cells % 0 Laboratory test finding 08/25/2015 Lactic Acid 1.1 mmol/L 0.5-2.0 30 Comp Metabolic Panel 08/25/2015 Sodium 137 mmol/L 133-145 Chloride 101 mmol/L 101-111 Co2 Carbon Dioxide 26 mmol/L 22-32 Glucose 74 mg/dL 70-100 Blood Urea Nitrogen 13 mg/dL 6-24 Creatinine 0.73 mg/dL 0.51-0.95 BUN/Creatinine Ratio 17.8 8-20 Calcium 9.9 mg/dL 8.6-10.3 Total Protein 7.5 g/dL 6.4-8.9 Albumin 4.8 g/dL 3.2-5.2 Globulin 2.7 g/dL 2-4 Albumin/Globulin Ratio 1.8 1-3 Total Bilirubin 1.10 mg/dL High 0.2-1.0 Alkaline Phosphatase 54 U/L 34-104 Alt 18 U/L 7-52 Egfr Non- 91.8 >60 Egfr 118.1 >60 31 Potassium 3.9 mmol/L 3.5-5.0 Anion Gap 10 mmol/L 2-11 Ast 27 U/L 13-39 Laboratory test finding 08/25/2015 Lipase 35 U/L 11.0-82.0 C Reactive Protein 5.71 mg/L High < 5.00 32 Laboratory test finding 08/08/2015 Amylase, Serum 75 U/L 20-105 Comprehensive Metabolic Prof 08/08/2015 Sodium 143 mEq/L 134-149 Potassium 3.9 mEq/L 3.6-5.5 Chloride 103 mEq/L 94-112 Carbon Dioxide 30 mEq/L 21-32 Glucose 55 mg/dL Low 70-105 33 BUN 8 mg/dL 6-26 Creatinine 0.8 mg/dL 0.6-1.4 BUN/Creat Ratio 10.0 CALC 8.0-36.0 Calcium 9.6 mg/dL 8.6-10.2 Total Protein 6.9 g/dL 6.4-8.3 Albumin 4.5 g/dL 3.8-5.5 Globulin 2.4 g/dL 2.0-4.8 A/G Ratio 1.9 CALC 0.6-2.3 Alk. Phosphatase 47 U/L 30-110 Alt (SGPT) 24 U/L 7-35 Ast (Sgot) 28 U/L 5-34 Total Bilirubin 0.5 mg/dL 0.2-1.3 GFR Non- >60 ml/min/1.73m^ >=60 GFR >60 ml/min/1.73m^ >=60 Laboratory test finding 08/08/2015 TSH 0.54 mIU/L 0.50-6.00 Free T4 0.90 ng/dL 0.75-1.54 Complete Blood Count 08/08/2015 WBC 3.8 x10^3/UL 3.6-9.6 RBC 4.34 x10^6/UL 3.90-5.70 HGB 13.8 g/dL 12.1-17.2 HCT 41 % 36-50 MCV 94.0 fL 82.2-97.4 MCH 31.9 pg 27.6-33.3 MCHC 34.0 g/dL 33.0-35.5 RDW 12.2 % 11.6-13.7 PLT 199 x10^3/UL 150-400 MPV 7.6 fL 7.4-10.4 Gran # 2.1 x10^3/UL 1.5-7.2 Lymph# 1.6 x10^3/UL 0.7-4.9 [place]# 0.1 x10^3/UL 0.1-0.9 Gran % 53.3 % 42.2-75.2 Lymph % 43.1 % 20.5-51.1 [place]% 3.6 % 1.7-9.3 Ua - Micro (Fma) 08/08/2015 Appearance CLEAR Color YELLOW Glucose, Urine (Fma/CMC/CTX) NEG Bilirubin NEG Ketones NEG SP Grav 1.015 Blood NEG PH 7.5 Protein NEG Urobil 0.2 Nitrite NEG Leukocytes (Fma/CMC/Centrex) NEG Hyaline - /Lpf Granular - /Lpf WBC (Fma,Centrex) 1-3 RBC - Mucus (Fma/CBC/Centrex) - /Lpf Epith OCC /Lpf Bacteria TRACE /Hpf Amorphous (Fma/CMC/Centrex) SMALL AMOUNT /Lpf Crystals, Fluid (Fma/CMC/CTX) - Z#Comments - Laboratory test finding 08/08/2015 Lipase, Serum 50 U/L 0-59 34 Laboratory test finding 06/16/2014 Amnisure Membrane Rupture 35 CBC No Diff 12/07/2013 White Blood Count 8.8 10^3/uL 4.8-10.8 Red Blood Count 4.25 10^6/uL 4.0-5.4 Hemoglobin 13.5 g/dL 12.0-16.0 Hematocrit 39 % 35-47 Mean Corpuscular Volume 92 fL 80-97 Mean Corpuscular Hemoglobin 32 pg High 27-31 Mean Corpuscular HGB Conc 35 g/dL 31-36 Red Cell Distribution Width 13 % 10.5-15 Platelet Count 177 10^3/uL 150-450 Mean Platelet Volume 9 um3 7.4-10.4 Ua - Non Micro (a) 09/22/2011 Appearance clear Color yellow Glucose neg Bilirubin neg Ketones neg SP Grav 1.020 Blood neg PH 7.5 Protein neg Urobil 0.2 Nitrite neg Leukocytes (Fma/CMC/Centrex) neg CBC Electronic (a) 09/22/2011 WBC 5.4 3.6-9.6 RBC 4.63 3.90-5.70 Hemoglobin (Fma/CMC/CTX) 14.9 g/dL 12.1 - 17.2 Hematocrit (Fma/CMC/CTX) 43.1 % 36.1 - 50.3 Platelets 227 10^3/ul 150-400 Lymph% 31.4 20.5-51.1 Mixed% 4.0 Neutrophils % 64.6 Mean Corpuscular Vol 93 82.2-97.4 Mean Corpuscular Hemoglobin 32.1 27.6-33.3 Mean Corpuscular Hemo Concen 34.5 32.0-36.0 RDW 11.2 Low 11.6-13.7 Mean Platelet Volume 8.0 6.5-11.0 Laboratory test finding 09/22/2011 Sed Rate (Fma/CMC/Centrex) 5mm Comprehensive Metabolic 09/22/2011 Albumin 5.0 g/dL 3.8-5.5 Prof Alk. Phos. 50 U/L 30-110 Alt (SGPT) 40 U/L High 7-35 36 Ast (Sgot) 32 U/L 5-34 BUN 19 mg/dL 6-26 Calcium 9.4 mg/dL 8.6-10.2 Chloride 99 mEq/L 94-112 Creatinine 0.7 mg/dL 0.6-1.4 Carbon Dioxide 31 mEq/L 21-32 Glucose 86 mg/dL 70-105 Sodium 138 mEq/L 134-149 Total Bilirubin 0.7 mg/dL 0.2-1.3 Total Protein 7.6 g/dL 6.3-8.1 Potassium 4.1 mEq/L 3.6-5.5 Globulin 2.6 g/dL 2.0-4.8 A/G Ratio 2.0 Calc 0.6-2.2 BUN/Creat Ratio 25.6 Calc 8.0-36.0 Hepatic 05/29/2010 Albumin 4.6 g/dL 3.8-5.5 Alk. Phos. 49 U/L 30-110 Alt (SGPT) 29 U/L 7-35 Ast (Sgot) 32 U/L 5-34 Total Bilirubin 0.6 mg/dL 0.2-1.3 Total Protein 6.7 g/dL 6.3-8.1 Direct Bilirubin 0.4 mg/dL 0.0-0.6 Globulin 2.1 g/dL 2.0-4.8 A/G Ratio 2.1 Calc 0.6-2.2 Indirect Bilirubin 0.24 0.10-1.00 Laboratory test finding 05/29/2010 Ferritin 23 ng/mL 6-115 CBC (a) 05/29/2010 WBC 4.4 3.6-9.6 RBC 4.56 3.90-5.70 Hemoglobin (Fma/CMC/CTX) 14.5 g/dL 12.1 - 17.2 Hematocrit (Fma/CMC/CTX) 43.7 % 36.1 - 50.3 Platelets 218 10^3/ul 150-400 Lymph% 36.9 20.5-51.1 Mixed% 5.8 Neutrophils % 57.3 Mean Corpuscular Vol 96 82.2-97.4 Mean Corpuscular Hemoglobin 31.9 27.6-33.3 Mean Corpuscular Hemo Concen 33.2 32.0-36.0 RDW 10.9 Low 11.6-13.7 Mean Platelet Volume 8.3 6.5-11.0 Iron/Tibc,%Sat Group 05/29/2010 Iron 123 g/dL 30-158 37 Total Iron Binding Cap. 248 g/dL Low 250-450 37 % Iron Saturation 49.6 % High 13.0-45.0 37 Wet Prep 01/31/2010 Wet Prep NONE SEEN 38 Laboratory test 01/31/2010 Bacterial Vaginosis Bacterial Vagino 39 finding Smear <SEE NOTE> GC/Chlamydia Dna 01/31/2010 GC By Aptima NEGATIVE Negative 40 Probe CHL By Aptima NEGATIVE Negative 41 Laboratory test finding 11/23/2009 TSH 1.12 mIU/L 0.50-6.00 Comprehensive Metabolic Prof 11/23/2009 Albumin 4.9 g/dL 3.8-5.5 Alk. Phos. 65 U/L 30-110 Alt (SGPT) 34 U/L 7-35 Ast (Sgot) 29 U/L 5-34 BUN 15 mg/dL 6-26 Calcium 9.5 mg/dL 8.6-10.2 Chloride 99 mEq/L 94-112 Creatinine 0.7 mg/dL 0.6-1.4 Carbon Dioxide 29 mEq/L 21-32 Glucose 82 mg/dL 70-105 Sodium 137 mEq/L 134-149 Total Bilirubin 0.8 mg/dL 0.2-1.3 Total Protein 7.6 g/dL 6.3-8.1 Potassium 4.3 mEq/L 3.6-5.5 Globulin 2.6 g/dL 2.0-4.8 A/G Ratio 1.9 Calc 0.6-2.2 BUN/Creat Ratio 20.8 Calc 8.0-36.0 Laboratory test finding 11/23/2009 Sed Rate (Fma/CMC/Centrex) 2 CBCM-a 11/23/2009 WBC 5.0 3.6-9.6 RBC 4.72 3.90-5.70 Hemoglobin (Fma/CMC/CTX) 15.5 g/dL 12.1 - 17.2 Hematocrit (Fma/CMC/CTX) 43.2 % 36.1 - 50.3 Mean Corpuscular Vol 91.5 82.2-97.4 Mean Corpuscular Hemaglobin 32.8 27.6-33.3 Mean Corpuscular Hemo Concen 35.9 33.0-36.0 Platelets 177 10^3/ul 150-400 RDW 12.1 11.6-13.7 Mean Platelet Volume 11.3 High 7.4-10.4 Neutrophil 51 Band 2 Lymphocytes 44 Monocyte 1 Eosinophils 2 Basophils - Metamyelocytes - Myelocytes - Promyelocytes - Blast - Atypical Lymph - NRBC - Anisocytosis (Fma/CMC/Centrex) - Hypochrom - Polychrom - Poikilocytosis - Macrocytosis - Microcytosis (Fma/CMC/Centrex) - Comment RBC/PLTS NORMAL Anti Thyroid Abs 11/23/2009 Thyroid Peroxidase (Tpo) Ab 7 IU/mL 0-34 Antithyroglobulin Ab <20 IU/mL 0-40 42 Celiac Disease Comp PNL 11/23/2009 Deamidated Gliadin Abs, IgA 2.8 U/mL 0.0-10.0 Deamidated Gliadin Abs, IgG 1.8 U/mL 0.0-10.0 t-Transglutaminase (tTG) IgA 0 U/mL 0-3 43 t-Transglutaminase (tTG) IgG 1 U/mL 0-5 44 Endomysial Antibody IgA Negative Negative Immunoglobulin A, Qn, Serum 133 mg/dL 70-400 Protime Stat 11/19/2008 Inr 1.03 0.86-1.13 45 Protime 12.5 SEC 10.67-13.64 46 Laboratory test finding 11/19/2008 PTT (Aptt) Stat 21.9 20.1-28.2 47 Comp Stat 11/19/2008 Sodium 137 mmol/L 135-145 Potassium 3.2 mmol/L Low 3.5-5.0 Chloride 104 mmol/L 101-111 Co2 (Carbon Dioxide) 27.0 mmol/L 22-32 Anion Gap 6.0 mmol/L 2-11 48 Glucose 86 mg/dL 70-100 49 BUN 11 mg/dL 6-24 Creatinine 0.70 mg/dL 0.50-1.40 One Over Creatinine 1.40 BUN/Creatinine Ratio 15.7 8-20 Calcium 8.7 mg/dL 8.1-9.9 50 Total Protein 6.2 GM/DL 6.2-8.1 Albumin 3.1 GM/DL Low 3.6-5.4 Globulin 3.1 GM/DL 2-4 Albumin/Globulin Ratio 1.0 1-3 Bilirubin Total 0.9 mg/dL 0.4-1.5 51 Alkaline Phosphatase 92 U/L 30-110 Alt (SGPT) 52 U/L 14-54 Ast (Sgot) 62 U/L High 12-42 Laboratory test finding 11/19/2008 BHCG Quantitative 453.0 MIU/ML High 0- 5 52 CBC With Manual Diff Stat 11/19/2008 White Blood Count 11.4 CUMM High 4.8- 10.8 Red Cell Count 3.52 CUMM Low 4.2-5.4 Hemoglobin 11.9 g/dL Low 12.0-16.0 Hematocrit 34 % Low 35-47 Mean Corpuscular Volume 95 um3 79-97 Mean Corpuscular Hemoglob 34 pg High 27-31 Mean Corpuscular HGB Cone 36 g/dL 32-36 Redcell Distribution WDTH 12 % 10.5-15 Platelet Count 222 CUMM 150-450 Mean Platelet Volume 8.3 um3 7.4-10.4 Polysegmented Neutrophil 82 % 38-83 Lymphocyte 17 % Low 25-47 Eosenophil 1 % 0-6 Absolute Neutrophil Count 9.3 RBC Morphology NORMAL Laboratory test finding 02/01/2008 , Serum NEGATIVE Laboratory test finding 02/01/2008 TSH 0.85 mIU/L 0.50-6.00 53 Complete Blood Count 02/01/2008 WBC 4.6 x10^3/u 3.6-9.6 53 Gran# 3.1 x10^3/u 1.5-7.2 53 Gran% 68.2 % 42.2-75.2 53 HCT 46 % 36-50 53 HGB 15.4 g/dL 12.1-17.2 53 Lymph# 1.3 x10^3/u 0.7-4.9 53 Lymph% 27.2 % 20.5-51.1 53 MCH 31.8 pg 27.6-33.3 53 MCV 94.2 fL 82.2-97.4 53 MCHC 33.8 g/dL 33.0-35.5 53 Mo# 0.2 x10^3/u 0.1-0.9 53 Mo% 4.6 % 1.7-9.3 53 MPV 8.8 fL 7.4-10.4 53 PLT 181 x10^3/u 150-400 53 RBC 4.86 x10^6/u 3.90-5.70 53 RDW 11.2 % Low 11.6-13.7 53 Lipid Profile 02/01/2008 Cholesterol 162 mg/dL 120-200 53 HDL 67 mg/dL 30-85 53 Triglycerides 75 mg/dL 30-200 53 HDL Risk Factor 2.4 CALC Low 4.2-7.0 53 LDL (Calculated) 80 CALC 0-129 53 VLDL (Calculated) 15 mg/dL 0-50 53 Comprehensive Metabolic Prof 02/01/2008 Albumin 5.3 g/dL 3.8-5.5 53 Alk. Phos. 54 U/L 30-110 53 Alt (SGPT) 26 U/L 7-35 53 Ast (Sgot) 32 U/L 5-34 53 BUN 11 mg/dL 6-26 53 Calcium 10.0 mg/dL 8.6-10.2 53 Chloride 100 mEq/L 94-112 53 Creatinine 1.0 mg/dL 0.6-1.4 53 Carbon Dioxide 27 mEq/L 21-32 53 Glucose 83 mg/dL 70-105 53 Sodium 137 mEq/L 134-149 53 Total Bilirubin 1.1 mg/dL 0.2-1.3 53 Total Protein 7.7 g/dL 6.3-8.1 53 Potassium 3.5 mEq/L Low 3.6-5.5 53, 54 Globulin 2.3 g/dL 2.0-4.8 53 A/G Ratio 2.3 Calc High 0.6-2.2 53 BUN/Creat Ratio 10.5 Calc 8.0-36.0 53 Ua - Non Micro (Fma) 05/20/2007 Appearance clear Color yellow Glucose - Bilirubin - Ketones - SP Grav <1.005 Blood - PH 7.0 Protein - Urobil 0.2 Nitrite - Leukocytes (Fma/CMC/Centrex) - Laboratory test finding 05/20/2007 Quickstrep NEGATIVE Negative Throat - Beta Strep Fma NEGATIVE @24HRS Laboratory test 05/20/2007 Thin Prep W/HPV(Lsil/CAIT/Asc) SEE NOTE 55 finding CBC Electronic-ALL 11/05/2006 WBC 9.2 3.6-9.6 Lab Compani RBC 4.67 3.90-5.70 Hemoglobin (Fma/CMC/CTX) 14.6 g/dL 12.1 - 17.2 Hematocrit (Fma/CMC/CTX) 43.1 % 36.1 - 50.3 Mean Corpuscular Vol 92.2 82.2-97.4 Mean Corpuscular Hemaglobin 31.1 27.6-33.3 Mean Corpuscular Hemo Concen 34.0 33.0-36.0 RDW 11.2 Low 11.6-13.7 Platelets 230 10^3/ul 150-400 Mean Platelet Volume 7.7 7.4-10.4 Neutrophils % 12.4 Lymphocytes % 79.4 % High 20.5 - 51.1 Monocytes % 8.2 % 1.7-9.3 Eosinophil -- Basophil% -- Abs Neutrophils 7.3 Abs Lymphs 1.1 Abs Mononuclear 0.8 Abs Eosinophils -- Abs Basophils -- Laboratory test finding 11/05/2006 Monospot (Fma/Centrex) NEGATIVE Quickstrep NEGATIVE Negative Laboratory test finding 04/03/2006 Thinprep Pap W/HPV SCR. Of SEE IMAGE CAIT/ASCUS 1 *Ascorbic acid is present which may interfere with detection of blood. 2 Because ethnic data is not always readily available, this report includes an eGFR for both -Americans and non- Americans. The National Kidney Disease Education Program (NKDEP) does not endorse the use of the MDRD equation for patients that are not between the ages of 18 and 70, are , have extremes of body size, muscle mass, or nutritional status, or are non- or non-. According to the National Kidney Foundation, irrespective of diagnosis, the stage of the disease is based on the level of kidney function: Stage Description GFR(mL/min/1.73 m(2)) 1 Kidney damage with normal or decreased GFR 90 2 Kidney damage with mild decrease in GFR 60-89 3 Moderate decrease in GFR 30-59 4 Severe decrease in GFR 15-29 5 Kidney failure <15 (or dialysis) 3 <5.0 Negative 5.0 - 25.0 Indeterminate (Repeat testing recommended after 72 hours) >25.0 Positive Perimenopausal women can display HCG levels of up to 20 mIU/mL 11 march 2017. 5 ADDITIONAL INFORMATION This test has been modified from the special effects technician's instructions. Its performance characteristics were determined by [facility] in a manner consistent with CLIA requirements. This test has not been cleared or approved by the U.S. Food and Drug Administration. Test Performed by: [facility] - [address] [address] 6 ADDITIONAL INFORMATION This test has been modified from the special effects technician's instructions. Its performance characteristics were determined by [facility] in a manner consistent with CLIA requirements. This test has not been cleared or approved by the U.S. Food and Drug Administration. 7 ADDITIONAL INFORMATION This test has been modified from the special effects technician's instructions. Its performance characteristics were determined by [facility] in a manner consistent with CLIA requirements. This test has not been cleared or approved by the U.S. Food and Drug Administration. 8 ADDITIONAL INFORMATION This test has been modified from the special effects technician's instructions. Its performance characteristics were determined by [facility] in a manner consistent with CLIA requirements. This test has not been cleared or approved by the U.S. Food and Drug Administration. 9 No laboratory evidence of von Willebrand's disease based on normal results of factor VIII activity, von Willebrand factor activity, and von Willebrand factor antigen. Note: von Willebrand factor antigen and activity and/or factor VIII may be increased above baseline levels by acute or chronic inflammation, stress or adrenergic stimuli, or estrogen and oral contraceptive therapy, or liver disease. Recent administration of desmopressin or von Willebrand factor concentrate may mask the diagnosis of von Willebrand's disease. Suggest clinical correlation. Interpretation not reviewed by physician. Test Performed by: [facility] - [address] [address] 10 RESULTS VERIFIED BY REPEAT ANALYSIS 11 12 HLA-B*27 Negative HLA allele interpretation for all loci based on IMGT/HLA database version 3.25.0 This test was developed and its performance characteristics determined by [employer]. It has not been cleared or approved by the Food and Drug Administration. [facility] CLIA ID Number [id number] This test was performed using PCR (Polymerase Chain Reaction)/SSOP (Sequence Specific Oligonucleotide Probes) technique. SBT (Sequence Based Typing) and/or SSP (Sequence Specific Primers) may be used as supplemental methods when necessary. Please contact [facility] Customer Service at if you have any questions. Director of [facility] Dr Ignacio Swenson, PhD 13 Please note: The following may produce a false positive D Dimer test: - Rheumatoid factor greater than 60 IU/ml - Plasma hemoglobin greater than 0.05 gm/dl - Bilirubin greater than 50 mg/dl - Lipids greater than 1000 mg/dl - FDP greater than 20 ug/ml 14 Specimen hemolyzed. Result may not be valid. [place] Severe Sepsis and Septic Shock Management Bundle Measure requires all lactic acids initially measuring >2.0 mmol/L be repeated. 15 Because ethnic data is not always readily available, this report includes an eGFR for both -Americans and non- Americans. The National Kidney Disease Education Program (NKDEP) does not endorse the use of the MDRD equation for patients that are not between the ages of 18 and 70, are , have extremes of body size, muscle mass, or nutritional status, or are non- or non-. According to the National Kidney Foundation, irrespective of diagnosis, the stage of the disease is based on the level of kidney function: Stage Description GFR(mL/min/1.73 m(2)) 1 Kidney damage with normal or decreased GFR 90 2 Kidney damage with mild decrease in GFR 60-89 3 Moderate decrease in GFR 30-59 4 Severe decrease in GFR 15-29 5 Kidney failure <15 (or dialysis) 16 99th percentile=0.04 ng/mL Troponin results at [facility] and [facility] are not interchangeable. 17 <5.0 Negative 5.0 - 25.0 Indeterminate (Repeat testing recommended after 72 hours) >25.0 Positive Perimenopausal women can display HCG levels of up to 20 mIU/mL 18 Test Performed by: [facility] - [address] [address] Video Intern: Reese Galaviz II, M.D., Ph.D. 19 REFERENCE VALUE <=1.0 (Negative) 20 REFERENCE VALUE <20.0 (Negative) 21 Tests for antibodies to dsDNA and MONE antigens are not performed automatically unless the PRINCESS result is > or= 3.0 U. Studies performed at [facility] indicate that positive PRINCESS results <3.0 U are rarely accompanied by positive second order tests. Test Performed by: [place] [address] Video Intern: Reese Galaviz II, M.D., Ph.D. 22 RESULT: COMPLEX (SEE RESULT AND INTERPRETATION) 23 A multiplex PCR based assay utilizing the AquaMost Array platform was used to test for the following three mutations in the HFE gene; C282Y, H63D, and S65C. Because of the minimal effect on iron metabolism associated with the S65C mutation, it is only reported when it is found with the C282Y mutation (i.e. if the patient has the C282Y/S65C genotype). 24 C282Y: Two copies of the C282Y mutation were identified. H63D: Not detected. 25 This result may be consistent with, but does not confirm a diagnosis of or predisposition for hereditary hemochromatosis (HH). Gender and serum ferritin level are known to impact the penetrance of the p.C282Y allele. Men homozygous for p.C282Y mutations are at considerably higher risk to exhibit symptoms than women with the same genotype. Individuals with two copies of the p.C282Y mutation and a serum ferritin level greater than 1000 ug/L are at increased risk for symptoms related to iron overload. Genotyping results should be interpreted in the context of clinical findings, family history, and other laboratory testing (e.g. serum transferrin-iron saturation and serum ferritin). Since the p.C282Y mutation has been identified, genetic testing and clinical evaluation of at risk family members could be considered. A genetic consultation may be of benefit. ADDITIONAL INFORMATION An online research opportunity called uTaP (RECCY), a project of [employer], is available for the recipient of this genetic test. This patient registry collects de-identified genetic and health information to advance the knowledge of genetic variants. [facility] is a collaborator of [employer]. This may not be applicable for all tests. Test results should be interpreted in the context of clinical findings, family history, and other laboratory data. Misinterpretation of results may occur if the information provided is inaccurate or incomplete. Rare polymorphisms exist that could lead to false-negative or false-positive results. If results obtained do not match the clinical findings, additional testing should be considered. Bone Marrow transplants from allogenic donors will interfere with testing. Call [facility] for instructions for testing patients who have received a bone marrow transplant. Multiple in-silico evaluation tools may have been used to assist in the interpretation of these results. Of note, the sensitivity and specificity of these tools for the determination of pathogenicity is currently unvalidated. Laboratory developed test. PDF Report available at: [email or web address] RESULT: Gil Ortiz M.D., Ph.D. Test Performed by: [place] [address] Video Intern: Reese Galaviz II, M.D., Ph.D. Positive: 5 of the following Borrelia-specific bands: 18,23,28,30,39,41,45,58, 66, and 93. Negative: No bands or banding patterns which do not meet positive criteria. 29 Note: An equivocal or positive EIA result followed by a negative Western Blot result is considered NEGATIVE. An equivocal or positive EIA result followed by a positive Western Blot is considered POSITIVE by the CDC. Positive: 2 of the following bands: 23,39 or 41 Negative: No bands or banding patterns which do not meet positive criteria. Criteria for positivity are those recommended by CDC/ASTPHLD. p23=Osp C, p86=bjrgkvigv Note: Sera from individuals with the following may cross react in the [place] Western Blot assays: other spirochetal diseases (periodontal disease, leptospirosis, relapsing fever, yaws, and pinta); connective autoimmune (Rheumatoid Arthritis and Systemic Lupus Erythematosus and also individuals with Antinuclear Antibody); other infections ([place] Spotted Fever; Dontae-Esposito Virus, and Cytomegalovirus). 30 [facility] Severe Sepsis and Septic Shock Management Bundle Measure requires all lactic acids initially measuring >2.0mmol/L be repeated. 31 Because ethnic data is not always readily available, this report includes an eGFR for both -Americans and non- Americans. The National Kidney Disease Education Program (NKDEP) does not endorse the use of the MDRD equation for patients that are not between the ages of 18 and 70, are , have extremes of body size, muscle mass, or nutritional status, or are non- or non-. According to the National Kidney Foundation, irrespective of diagnosis, the stage of the disease is based on the level of kidney function: Stage Description GFR(mL/min/1.73 m(2)) 1 Kidney damage with normal or decreased GFR 90 2 Kidney damage with mild decrease in GFR 60-89 3 Moderate decrease in GFR 30-59 4 Severe decrease in GFR 15-29 5 Kidney failure <15 (or dialysis) 32 Acute inflammation: >10.00 33 RESULTS VERIFIED BY REPEAT ANALYSIS 34 1 SST 35 Membrane Rupture 36 result renetta'd 37 1SST 38 ABSENT FEW (LESS THAN 1/HPF) ABSENT 39 Bacterial Vaginosis Indeterminate None None None 40 . A negative result does not preclude the presence of a C.trachomatis or N.gonorrhoeae infection because results are dependent on adequate specimen collection, absence of inhibitors, and sufficient rRNA to be detected. Test results may be affected by improper specimen collection, improper specimen storage, technical error, or specimen mixup. . 41 . A negative result does not preclude the presence of a C.trachomatis or N.gonorrhoeae infection because results are dependent on adequate specimen collection, absence of inhibitors, and sufficient rRNA to be detected. Test results may be affected by improper specimen collection, improper specimen storage, technical error, or specimen mixup. . 42 Siemens (DPC) ICMA Methodology 43 Negative 0 - 3 Weak Positive 4 - 10 Positive >10 . Tissue Transglutaminase (tTG) has been identified as the endomysial antigen. Studies have demonstr- ated that endomysial IgA antibodies have over 99% specificity for gluten sensitive enteropathy. 44 Negative 0 - 5 Weak Positive 6 - 9 Positive >9 45 Recommended INR for Patients on Oral Anticoagulants Prophylaxis 2.0 - 3.0 Treatment of thrombosis 2.0 - 3.0 Prevention of embolism 2.0 - 3.0 Prevention of embolism from prosthetic heart valves 2.5 - 3.5 46 ATTENTION EFFECTIVE 10/18/08, THE IMPLEMENTATION OF NEW COAGULATION ANLAYZERS HAS CAUSED A SIGNIFICANT DIFFERENCE FOR PROTIME RESULTS IN SECONDS. THEREFORE, DIAGNOSIS,TREATMENT,AND THERAPY MUST BE BASED ON THE INR VALUE ONLY. 47 PLEASE NOTE NEW REFERENCE RANGE EFFECTIVE 07. 48 Anion gap measurement may be of limited value in the presence of any alkalosis, especially in a combined acid base disorder. . 49 Note change in reference range as of 01/27/08. The change was based on recommendations from the [place] [employer]. 50 Please note change in reference range effective 07 . 51 A metabolite of Naproxen, O-desmethylnaproxen, has been shown to interfere with the Jendrreginaldik-[place] method for measuring total bilirubin. Samples from patients who have taken Naproxen have shown spurious elevation in total bilirubin levels. 52 * MALES: < 5.0 MIU/ML NON FEMALES < 5.0 MIU/ML APPROX GESTATIONAL AGE APPROX HCG RANGE 0-1 WEEK < 5.0-50 1-2 WEEKS 50-500 2-3 WEEKS 100-5000 3-4 WEEKS 500-10,000 1-2 MONTHS 10,000-200,000 2-3 MONTHS 15,000-100,000 PLEASE NOTE: The intended use of this assay is the quantitative determination of HCG in human serum or plasma for the early detection of . These assays should not be used to diagnose any condition unrelated to . If an HCG level is inconsistent with, or unsupported by, clinical evidence, results should be confirmed by an alternate HCG method. . 53 FASTING 54 result renetta'd 55 [facility] [employer] DEPARTMENT OF PATHOLOGY or Extension 8265 [employer] MAKER/DESIGNER CYTOLOGY REPORT PATIENT: DANIELLE ERNST : 1980 AGE: 27 Y SEX: F ACCT: [id number] PROCEDURE DATE: 05/20/2007 DATE RECEIVED: 05/21/2007 REQUESTING PHYSICIAN: DARRICK BRAY LOCATION: [facility] [place] Case No. [id number] PATIENT DATA: [id number] SPECIMEN SUBMITTED: * * (HPVII) THIN PREP W/HPV (LSIL/ASC/CAIT) * * CERVICAL RELEVANT HISTORY: LMP: 04/29/2007 Contraceptive: BCP Prev.normal: 03/13 SPECIMEN ADEQUACY SATISFACTORY FOR EVALUATION, ENDOCERVICAL TRANSFORMATION ZONE COMPONENT PRESENT GENERAL CATEGORIZATION NEGATIVE FOR INTRAEPITHELIAL LESIONS OR MALIGNANCY ADDITIONAL COPIES SENT TO: Screened/Rescreened by: Electronically Signed by: HALEY MAC(ASCP) Signed Date 05/25/2007 12:49 Thin Prep Pap tests are examined with an FDA-approved location-guidance system (39857). Performed @ [facility], [employer] [address] [place] [address] Procedures Date CPT Code Description Status 05/02/2014 56142 Pulse Oximetry Completed 05/02/2014 30709 Nebulizer Treatment Completed 04/17/2014 41124 Pulse Oximetry Completed 08/19/2006 63915 Electrocardiogram Complete Completed Encounters Type Date Location Provider CPT E/M Dx Office Visit 02/11/2018 10:15a Main Office Brenda Linn 01878 Z11.1 Ashlyn Office Visit 12/16/2016 10:40a [facility] Brenda Linn 82994 Z00.01 Ashlyn M54.89 D69.2 K05.00 Office Visit 12/13/2015 3:00p [facility] Office Rian Fischer 24452 A69.29 Office Visit 12/06/2015 1:40p [facility] Igor Devine M.D. 82812 A69.20 Office Visit 11/27/2015 11:20a [facility] Brenda Linn M.D. 31391 M54.2 A69.20 E83.118 Office Visit 08/08/2015 9:00a [facility] Office Shanna Ortiz, [facility] 75572 R10.11 R10.30 K59.01 Office Visit 05/02/2014 10:45a Main Office Shanna Ortiz, [facility] 88975 786.2 Office Visit 04/17/2014 3:20p [facility] Frances Sethi M.D. 23961 465.8 Office Visit 06/30/2013 10:00a [facility] Office Mary Kay Pereyra CHIP 05792 V70.3 789.01 v06.5 Office Visit 12/29/2012 7:15p Main Office Lziett Gee-C 43355 789.09 Office Visit 09/22/2011 10:45a Main Office Lizett Gee-C 12379 789.09 Office Visit 05/29/2010 9:40a Main Office Shanna Smith, 68189 V18.3 M.D. Office Visit 11/23/2009 9:40a [facility] Office Shanna Smith, 29100 783.21 M.D. Office Visit 09/18/2009 2:10p Main Office Igor Devine M.D. 81469 727.51 Office Visit 04/09/2009 11:30a Main Office Val Loredo [facility] 94227 842.09 Office Visit 01/04/2008 12:00p Main Office Shanna Smith, 63733 V70.0 M.D. 346.90 V17.3 Office Visit 10/07/2007 9:30a [facility] Office Val Loredo [facility] 72611 V65.40 Office Visit 07/14/2007 9:20a Main Office Shanna Smith, 23563 784.0 M.D. 461.2 Office Visit 05/20/2007 10:00a [facility] Office Val Loredo [facility] 02484 V72.31 462 Office Visit 02/26/2007 4:30p Main Office Val Loredo [facility] 37677 372.03 Office Visit 12/01/2006 2:45p [facility] Office Mee TrinidadLizett suazo-C 88437 708.0 Office Visit 11/05/2006 1:15p [facility] Office Val Loredo, [facility] 23836 462 780.79 Office Visit 08/19/2006 10:10a Main Office Igor Devine M.D. 57895 786.50 Office Visit 04/03/2006 3:30p Main Office Val Loredo, [facility] 66507 V72.31 346.90 Plan of Care 03/02/2018 - Raquel Farooq, NPZ00.00 Encntr for general adult medical exam w/o abnormal findingsNew Labs:CBC Electronic-ALL Lab CompaniComp Metabolic-ALL Lab CompaniTS (Fma/CMC/[facility])Comments:Encourage an active and healthy lifestyle with proper eating habits including fruits, vegetables, 6-8 glasses of water a day and monitoring portion size. Recommend 30 minutes of daily physical activityincluding walking, aerobic exercise, sports, yoga or dance. Any activity is better than no activity.Recommend routine eye and dental exams. Encourage 1200 units of calcium and 1000 units of vitamin D daily. Next physical is due in 1-2 years.Z13.220 Encounter for screening for lipoid disordersNew Labs:Lipid Panel-ALL Lab [id number] Encounter for immunizationComments:Your flu vaccination has been administered. This protects you for the fall, winter and spring. It will decrease the likelihood that you will get the flu. If you are unlucky and get the flu, the symptoms will be less severe.AllComments:~B_~U_Medication Management~b_~u_ Patient Understands medications he 's taking? Yes No Are there Barriers to Adherence? Yes No Has the patient been asked about herbal supplements and therapies, and OTC meds? Yes No ~B_~U_Care Plan~b_~u_1. Patient has been queried about patient's goals/preferences and functional/lifestyle goals at relevant visits. If relevant, describe: na2. Treatment goals as explained to the patient: above3. Are there barriers to meeting treatment goals? Yes No If Yes, please describe:4. Self-Management goals as described to the patient:Yes NoAs always, we strongly encourage a healthy diet and making physical activity a part of your every day life. If you have questions about how or where to start, please contact the office.Follow up:Please contact front office staff to set up the online patient portal Annual Due: 02/2019
[2018-03-04 23:04] LABS: ABS Basophils 0 10^3/ul (0-0.2); ABS Eosinophils 0.1 10^3/ul (0-0.6); ABS Lymphocytes 1.8 10^3/ul (1.0-4.8); ABS Monocytes 0.4 10^3/ul (0-0.8); ABS Nucleated RBC 0 10^3/ul; Eosinophil % 1.7 % (0-6); Hematocrit 35 % (35-47); Hemoglobin 11.7 g/dl (12.0-16.0); Lymphocyte % 41.3 % (25-47); Mean Corpuscular HGB Conc 33 g/dl (31-36); Mean Corpuscular Hemoglobin 29 pg (27-31); Mean Corpuscular Volume 89 fL (80-97); Mean Platelet Volume 9.5 um3 (7.4-10.4); Nucleated Red Blood Cells % 0; Platelet Count 172 10^3/ul (150-450); Red Blood Count 3.98 10^6/ul (4.00-5.40); Red Cell Distribution Width 13 % (10.5-15); White Blood Count 4.3 10^3/ul (3.5-10.8)
[2018-03-04 23:18] LABS: EGFR Non-African American 94.7 (>60)
--- NOTE | 2018-03-05 00:26 | ED ---
HPI Chest Pain - HPI Summary HPI Summary: Patient complains of sudden onset chest pain with radiation into left arm starting today at 5 PM.. Chest pain described as intermittent, lasting 15-20 seconds, new onset, random onset, not related to exertion, sharp, burning, worst 8/10 pain. Denies SOB, diaphoresis, N/V, fever, cough, sore throat, abdominal pain, change in urine, change in BM. Patient states she exercises regularly and denies recent decrease in endurance. Denies recent lifting or new exercise. Medical history is none. Negative family cardiac history. Nonsmoker , rare EtOH, denies recreational drug use. Patient states heart rate typically in the 50s. - History of Current Complaint Chief Complaint: EDChestWallPain Time Seen by Provider: 03/04/18 22:11 Hx Obtained From: Patient Hx Last Menstrual Period: 09/10/16 Onset/Duration: Started Hours Ago Timing: Intermittent, Lasting Seconds Initial Severity: Moderate Current Severity: None Pain Intensity: 0 Pain Scale Used: 0-10 Numeric Chest Pain Location: Discrete at:, Mid Sternal, Left Lateral Chest Pain Radiates: No Aggravating Factor(s): Nothing Alleviating Factor(s): Nothing Associated Signs and Symptoms: Positive: Chest Pain, Numbness, Tingling - Allergy/Home Medications Allergies/Adverse Reactions: Allergies Allergy/AdvReac Type Severity Reaction Status Date / Time MS Amoxicillin Allergy Intermediate Vomiting Verified 12/10/14 15:04 [From Augmentin] MS Clavulanic Acid Allergy Intermediate Vomiting Verified 12/10/14 15:04 [From Augmentin] PMH/Surg Hx/FS Hx/Imm Hx Previously Healthy: Yes Endocrine/Hematology History: Denies: Hx Anticoagulant Therapy, Hx Diabetes, Hx Thyroid Disease Cardiovascular History: Denies: Hx Cardiac Arrest, Hx Hypertension Respiratory History: Denies: Hx Asthma, Hx Chronic Obstructive Pulmonary Disease (COPD) GI History: Denies: Hx Ulcer History: Denies: Hx Dialysis Neurological History: Denies: Hx CVA Infectious Disease History: No Infectious Disease History: Denies: Hx Hepatitis, Hx Human Immunodeficiency Virus (HIV), Traveled Outside the [place] in Last 30 Days - Family History Known Family History: Negative: Cardiac Disease, Blood Disorder - Social History Alcohol Use: Rare Hx Substance Use: No Substance Use Type: Reports: None Hx Tobacco Use: No Smoking Status (MU): Never Smoked Tobacco Review of Systems Constitutional: Negative Eyes: Negative ENT: Negative Positive: Chest Pain Respiratory: Negative Gastrointestinal: Negative Genitourinary: Negative Musculoskeletal: Negative Skin: Negative Neurological: Negative Psychological: Normal All Other Systems Reviewed And Are Negative: Yes Physical Exam - Summary Physical Exam Summary: Chest nontender to palpation. PMS intact distally on left upper extremity. Regular rate and rhythm. Lung sounds clear to auscultation bilaterally. Abdomen soft nontender Triage Information Reviewed: Yes Vital Signs On Initial Exam: Initial Vitals Temp Pulse Resp BP Pulse Ox 98.2 F 58 16 120/79 99 03/04/18 21:33 03/04/18 21:33 03/04/18 21:33 03/04/18 21:33 03/04/18 21:33 Vital Signs Reviewed: Yes Appearance: Positive: Well-Appearing Skin: Positive: Warm Head/Face: Positive: Normal Head/Face Inspection Eyes: Positive: Normal Neck: Positive: Supple Respiratory/Lung Sounds: Positive: Clear to Auscultation Cardiovascular: Positive: Normal Abdomen Description: Positive: Nontender Musculoskeletal: Positive: Normal Neurological: Positive: Normal Psychiatric: Positive: Normal AVPU Assessment: Alert - [place] Coma Scale Best Eye Response: 4 - Spontaneous Best Motor Response: 6 - Obeys Commands Best Verbal Response: 5 - Oriented Coma Scale Total: 15 Diagnostics - Vital Signs Vital Signs Temp Pulse Resp BP Pulse Ox 03/04/18 21:54 52 11 124/79 100 03/04/18 21:33 98.2 F 58 16 120/79 99 - Laboratory Lab Results: Lab Results 03/04/18 03/04/18 Range/Units 22:50 22:50 WBC 4.3 (3.5-10.8) 10^3/ul RBC 3.98 L (4.00-5.40) 10^6/ul Hgb 11.7 L (12.0-16.0) g/dl Hct 35 (35-47) % MCV 89 (80-97) fL MCH 29 (27-31) pg MCHC 33 (31-36) g/dl RDW 13 (10.5-15) % Plt Count 172 (150-450) 10^3/ul MPV 9.5 (7.4-10.4) um3 Neut % (Auto) 45.9 (38-83) % Lymph % (Auto) 41.3 (25-47) % [place] % (Auto) 10.5 H (0-7) % Eos % (Auto) 1.7 (0-6) % Baso % (Auto) 0.6 (0-2) % Absolute Neuts (auto) 2.0 (1.5-7.7) 10^3/ul Absolute Lymphs (auto) 1.8 (1.0-4.8) 10^3/ul Absolute Monos (auto) 0.4 (0-0.8) 10^3/ul Absolute Eos (auto) 0.1 (0-0.6) 10^3/ul Absolute Basos (auto) 0 (0-0.2) 10^3/ul Absolute Nucleated RBC 0 10^3/ul Nucleated RBC % 0 Sodium 139 (135-145) mmol/L Potassium 3.4 L (3.5-5.0) mmol/L Chloride 106 (101-111) mmol/L Carbon Dioxide 28 (22-32) mmol/L Anion Gap 5 (2-11) mmol/L BUN 12 (6-24) mg/dL Creatinine 0.70 (0.51-0.95) mg/dL Est GFR ( Amer) 114.6 (>60) Est GFR (Non-Af Amer) 94.7 (>60) BUN/Creatinine Ratio 17.1 (8-20) Glucose 94 (70-100) mg/dL Calcium 9.1 (8.6-10.3) mg/dL Total Bilirubin 0.40 (0.2-1.0) mg/dL AST 19 (13-39) U/L ALT 13 (7-52) U/L Alkaline Phosphatase 29 L (34-104) U/L Troponin I 0.00 (<0.04) ng/mL C-Reactive Protein < 1.00 (<8.01) mg/L Total Protein 6.2 L (6.4-8.9) g/dL Albumin 4.1 (3.2-5.2) g/dL Globulin 2.1 (2-4) g/dL Albumin/Globulin Ratio 2.0 (1-3) TSH 0.90 (0.34-5.60) mcIU/mL Beta HCG, Quant < 0.60 mIU/mL Result Diagrams: 03/04/18 22:50 03/04/18 22:50 Lab Statement: Any lab studies that have been ordered have been reviewed, and results considered in the medical decision making process. - Radiology cxr Xray Interpretation: No Acute Changes Radiology Interpretation Completed By: ED Physician Chest Pain Course/Dx - Course Course Of Treatment: Patient complains of sudden onset chest pain with radiation into left arm starting today at 5 PM.. Chest pain described as intermittent, lasting 15-20 seconds, new onset, random onset, not related to exertion, sharp, burning, worst 8/10 pain. Denies SOB, diaphoresis, N/V, fever , cough, sore throat, abdominal pain, change in urine, change in BM. Patient states she exercises regularly and denies recent decrease in endurance. Denies recent lifting or new exercise. Medical history is none. Negative family cardiac history. Nonsmoker, rare EtOH, denies recreational drug use. Patient states heart rate typically in the 50s. Physical exam:Chest nontender to palpation. PMS intact distally on left upper extremity. Regular rate and rhythm. Lung sounds clear to auscultation bilaterally. Abdomen soft nontender. Vital signs within normal limits. Patient is baseline bradycardic, EKG today same as prior 2017. Chest x-ray normal. Labs and first troponin unremarkable. Second troponin within normal limits. Patient has no cardiac risk factors, no cardiac history. Exercises regularly with no recent exertional CP or SOB. - Diagnoses Provider Diagnoses: Atypical chest pain Discharge - Sign-Out/Discharge Documenting (check all that apply): Patient Departure - Discharge Plan Condition: Stable Disposition: HOME Patient Education Materials: Chest Pain (ED) Referrals: Brenda Linn MD [Primary Care Provider] - Additional Instructions: Follow-up with primary care. Return to the ED for any new or worsening symptoms - Billing Disposition and Condition Condition: STABLE Disposition: Home
[2018-03-05 03:02] VITALS: BP 95/60
--- NOTE | 2018-03-05 08:24 | RAD ---
Indication: Chest pain. Single frontal view of the chest performed at 2303 hours was reviewed. Comparison is made with previous exam dated October 22, 2016. No mediastinal shift is noted. Heart is of normal size and configuration. Lung eli appear clear. IMPRESSION: NO ACTIVE CARDIOPULMONARY DISEASE IS NOTED.
== END 2018-03-05 03:02 | disposition home or self-care (01) ==
LOC: ED 21:30
DX: R07.89 Other chest pain (principal)
CPT/HCPCS: 36415; 71045; 80053; 83880; 84443; 84484; 84702; 85025; 86140; 93005; 99283

== ENCOUNTER 2018-05-12 12:42 | Emergency (ER) | payer BC ==
--- NOTE | 2018-05-12 12:59 | ED ---
HPI Cardiac - HPI Summary HPI Summary: Patient is a 38 y/o F presenting to ED with complaints of intermittent palpitations over the past three days. She states that episodes of palpitations last for a few hours. Patient reports some nausea but denies SOB, diarrhea, constipation and dizziness. She denies chest pain but states she is experiencing chest "pressure". Patient notes an episode of chest pain a month ago which had resolved on its own. She denies PMHx of thyroid issues, PSHx. FMHx of Alzheimer's is reported. LNMP was two weeks ago. On triage, pain is denied, nothing is noted to aggravate/alleviate Sx, and it is noted patient took 4 ASA LOCKSTITCH COAT JOINER. Home medications and allergies are reviewed. - History of Current Complaint Chief Complaint: EDGeneral Stated Complaint: HEART PALPATATIONS/TIGHTNESS IN CHEST Time Seen by Provider: 05/12/18 12:48 Hx Obtained From: Patient Hx Last Menstrual Period: 09/10/16 Onset/Duration: Started Days Ago - 3 days, Still Present Timing: Intermittent, Lasting Hours - a few Current Severity: None - pain denied Pain Intensity: 0 Pain Scale Used: 0-10 Numeric - 0/10 Chest Pain Radiates: No Aggravating Factor(s): Nothing Alleviating Factor(s): Nothing Associated Signs and Symptoms: Positive: Chest Pain - "pressure", Nausea, Palpitations, Other: - POSITIVE - CONSTIPATION, DIARRHEA. Negative: Dizziness, Shortness of Breath - Allergy/Home Medications Allergies/Adverse Reactions: Allergies Allergy/AdvReac Type Severity Reaction Status Date / Time amoxicillin Allergy Vomiting Verified 05/12/18 13:08 clavulanic acid Allergy Vomiting Verified 05/12/18 13:08 PMH/Surg Hx/FS Hx/Imm Hx Endocrine/Hematology History: Denies: Hx Anticoagulant Therapy, Hx Diabetes, Hx Thyroid Disease Cardiovascular History: Denies: Hx Cardiac Arrest, Hx Hypertension Respiratory History: Denies: Hx Asthma, Hx Chronic Obstructive Pulmonary Disease (COPD) GI History: Denies: Hx Ulcer History: Denies: Hx Dialysis Sensory History: Denies: Hx Legally Blind, Hx Deafness Opthamlomology History: Denies: Hx Legally Blind EENT History: Denies: Hx Deafness Neurological History: Denies: Hx CVA Infectious Disease History: No Infectious Disease History: Denies: Hx Hepatitis, Hx Human Immunodeficiency Virus (HIV), Traveled Outside the [place] in Last 30 Days - Family History Known Family History: Positive: Other - FMHx of Alzheimer's Negative: Cardiac Disease, Blood Disorder - Social History Alcohol Use: Rare Hx Substance Use: No Substance Use Type: Reports: None Hx Tobacco Use: No Smoking Status (MU): Never Smoked Tobacco Review of Systems Positive: Palpitations, Other - POSITIVE - CHEST PRESSURE Negative: Shortness Of Breath Positive: Nausea, Other - NEGATIVE - CONSTIPATION . Negative: Diarrhea Neurological: Other - NEGATIVE - DIZZINESS All Other Systems Reviewed And Are Negative: Yes Physical Exam - Summary Physical Exam Summary: VITAL SIGNS: Reviewed. GENERAL: Patient is a well-developed and nourished female who is lying comfortable in the stretcher. Patient is not in any acute respiratory distress. HEAD AND FACE: No signs of trauma. No ecchymosis, hematomas or skull depressions. No sinus tenderness. EYES: PERRLA, EOMI x 2, No injected conjunctiva, no nystagmus. EARS: Hearing grossly intact. Ear canals and tympanic membranes are within normal limits. MOUTH: Oropharynx within normal limits. NECK: Supple, trachea is midline, no adenopathy, no JVD, no carotid bruit, no c- spine tenderness, neck with full ROM. CHEST: Symmetric, no tenderness at palpation LUNGS: Clear to auscultation bilaterally. No wheezing or crackles. CVS: Regular rate and rhythm, S1 and S2 present, no murmurs or gallops appreciated. ABDOMEN: Soft, non-tender. No signs of distention. No rebound no guarding, and no masses palpated. Bowel sounds are normal. EXTREMITIES: FROM in all major joints, no edema, no cyanosis or clubbing. NEURO: Alert and oriented x 3. No acute neurological deficits. Speech is normal and follows commands. SKIN: Dry and warm Triage Information Reviewed: Yes Vital Signs On Initial Exam: Initial Vitals Temp Pulse Resp BP Pulse Ox 98.6 F 66 20 118/72 100 05/12/18 12:50 05/12/18 12:50 05/12/18 12:50 05/12/18 12:50 05/12/18 12:50 Vital Signs Reviewed: Yes Diagnostics - Vital Signs Vital Signs Temp Pulse Resp BP Pulse Ox 05/12/18 12:50 98.6 F 66 20 118/72 100 - Laboratory Result Diagrams: 05/12/18 12:56 05/12/18 12:56 Lab Statement: Any lab studies that have been ordered have been reviewed, and results considered in the medical decision making process. - EKG 1306 Cardiac Rate: NL - rate of 70 bpm EKG Rhythm: Sinus Rhythm EKG Comparison: No Significant Change - compared to 03/04/18 EKG Summary of EKG Findings: EKG showed sinus rhythm with rate of 70 BPM, no ST elevation, similar to EKG from 03/04/18 Re-Evaluation - Re-Evaluation First Eval Re-Evaluation Time: 15:40 Comment: I discussed all the findings and test results with the patient. Patient was instructed to return to the emergency room immediately if any of the symptoms return or worsens. Plan of care was discussed with the patient and understands and agrees. All questions were answered at patient satisfaction. There were no further complaints or concerns. Lung exam before discharge: CTA B /L. Good air exchange. No wheezing or crackles heard. CVS: S1 and S2 present. No murmurs appreciated. Patient is alert and oriented x 3. Patient is hemodynamically stable. Patient will be discharged home with follow up PCP in the next 2-3 days Disposition - Course Assessment/Plan: Patient is a 38 y/o F presenting to ED with complaints of intermittent palpitations over the past three days. She states that episodes of palpitations last for a few hours. Patient reports some nausea but denies SOB, diarrhea, constipation and dizziness. She denies chest pain but states she is experiencing chest "pressure". Patient notes an episode of chest pain a month ago which had resolved on its own. She denies PMHx of thyroid issues, PSHx. FMHx of Alzheimer's is reported. LNMP was two weeks ago. On triage, pain is denied, nothing is noted to aggravate/alleviate Sx, and it is noted patient took 4 ASA LOCKSTITCH COAT JOINER. Home medications and allergies are reviewed. Blood work without any significant abnormality. EKG shows a normal sinus rhythm without any abnormality. I believe that the patient will benefit from a Holter monitor. Therefore the patient will be discharged back to the PCP to get a Holter monitor and further workup and management. I discussed all the findings and test results with the patient. Patient was instructed to return to the emergency room immediately if any of the symptoms return or worsens. Plan of care was discussed with the patient and understands and agrees. All questions were answered at patient satisfaction. There were no further complaints or concerns. Lung exam before discharge: CTA B/L. Good air exchange. No wheezing or crackles heard. CVS: S1 and S2 present. No murmurs appreciated. Patient is alert and oriented x 3. Patient is hemodynamically stable. Patient will be discharged home with follow up PCP in the next 2-3 days - Diagnoses Provider Diagnoses: Palpitations Discharge - Sign-Out/Discharge Documenting (check all that apply): Patient Departure - discharge - Discharge Plan Condition: Stable Disposition: HOME Patient Education Materials: Heart Palpitations (ED) Referrals: Brenda Linn MD [Primary Care Provider] - 3 Days Additional Instructions: RETURN TO ED FOR NEW OR WORSENING SYMPTOMS. FOLLOW UP WITH YOUR PRIMARY CARE PHYSICIAN IN 2-3 DAYS. - Billing Disposition and Condition Condition: STABLE Disposition: Home - Attestation Statements Document Initiated by Scribe: Yes Documenting Scribe: SUZIE RUDOLPH Provider For Whom Scribe is Documenting (Include Credential): YANA RANGEL MD Scribe Attestation: SUZIE Lira , scribed for YANA RANGEL MD on 05/13/18 at 2158. Scribe Documentation Reviewed: Yes Provider Attestation: The documentation as recorded by the SUZIE bashir accurately reflects the service I personally performed and the decisions made by YANA jo MD Status of Scribe Document: Viewed
[2018-05-12 13:19] LABS: ABS Basophils 0 10^3/ul (0-0.2); ABS Eosinophils 0 10^3/ul (0-0.6); ABS Lymphocytes 1.4 10^3/ul (1.0-4.8); ABS Monocytes 0.4 10^3/ul (0-0.8); ABS Neutrophils 3.2 10^3/ul (1.5-7.7); ABS Nucleated RBC 0 10^3/ul; Eosinophil % 0.8 %; Hematocrit 38 % (35-47); Hemoglobin 12.6 g/dl (12.0-16.0); Lymphocyte % 27.5 %; Mean Corpuscular HGB Conc 34 g/dl (31-36); Mean Corpuscular Hemoglobin 29 pg (27-31); Mean Corpuscular Volume 86 fL (80-97); Mean Platelet Volume 8.7 fL (7.4-10.4); Nucleated Red Blood Cells % 0.1; Platelet Count 180 10^3/ul (150-450); Red Blood Count 4.34 10^6/ul (4.00-5.40); Red Cell Distribution Width 13 % (10.5-15); White Blood Count 5.2 10^3/ul (3.5-10.8)
[2018-05-12 13:35] LABS: EGFR Non-African American 93.1 (>60)
[2018-05-12 15:43] VITALS: BP 106/74
== END 2018-05-12 15:42 | disposition home or self-care (01) ==
LOC: ED 12:42
DX: R00.2 Palpitations (principal); Z88.0 Allergy status to penicillin
CPT/HCPCS: 36415; 80053; 83735; 84443; 84484; 85025; 93005; 99282